=== PATIENT | female | born 1955 | race Caucasian/White ===

== ENCOUNTER → 2016-11-17 | Outpatient (CLI) | payer MEDICARE ==
[~2016-11-17] MED LIST: ALBU18HF INH; ALBU6.7H INH; AMLO5TAB4 PO; ARIP2TAB PO; ARIP5TAB6 PO; ASPI-496 PO; ASPI-621 PO; BISA5TAB38 PO; BISA5TAB5 PO; CLOB15CR TP; CLON-365 PO; CLON0.1T PO; CLON0.2T10 PO; CYCL-259 PO; DICY10CA3 PO; DULO30CA2 PO; FLUT9.9S NS; HYDR-3144 PO; HYDR25TA6 PO; LEVO150T5 PO; LEVO15TA6 PO; LEVO175T5 PO; LEVO500T33 PO; LEVO750T26 PO; LISD40CA PO; LISI40TA PO; LUBI24CA5 PO; METH20TA5 PO; METH20TA8 PO; METO-95 PO; METO-99 PO; MIRT30TA4 PO; MORP30TA3 PO; MORPHINE PO; MULT-706 PO; NAPR1TAB25 PO; NAPR220C2 PO; OMEP-110 PO; OXYC15TA PO; PANT40TA5 PO; POTA10TA5 PO; POTA20TA91 PO; PRED5TAB PO; ROPI1TAB2 PO; SIMV20TA3 PO; SUVO20TA PO; TIOT18CA INH; VANC1VIA3 PO; ZOLP10TA5 PO; medical marijuana PO
== END | disposition home or self-care (01) ==
LOC: RAD 15:28
PROVIDERS: ATTEND Internal Medicine Pulmonary Disease
DX: J43.9 Emphysema, unspecified (principal); R91.8 Other nonspecific abnormal finding of lung field
CPT/HCPCS: 71250

== ENCOUNTER → 2017-04-04 | Outpatient (CLI) | payer MEDICARE ==
[~2017-04-04] MED LIST changes: -ARIP2TAB PO; +ARIP2TAB2 PO; +ARIP5TAB13 PO; -ARIP5TAB6 PO; -HYDR-3144 PO; +HYDR-3245 PO; -LEVO500T33 PO; +LEVO500T47 PO; -LISD40CA PO; +LISD40CA3 PO; -LUBI24CA5 PO; +LUBI24CA7 PO
== END | disposition home or self-care (01) ==
LOC: CFH 10:07
PROVIDERS: ATTEND Internal Medicine
DX: J43.2 Centrilobular emphysema (principal); R91.8 Other nonspecific abnormal finding of lung field; J98.11 Atelectasis
CPT/HCPCS: 71250

== ENCOUNTER → 2017-06-14 | Outpatient (CLI) | payer MEDICARE | END | disposition home or self-care (01) | LOC: CFH 06:41 | PROVIDERS: ATTEND Internal Medicine Hematology & Oncology | DX: D69.6 Thrombocytopenia, unspecified (principal); Z90.49 Acquired absence of other specified parts of digestive tract | CPT/HCPCS: 76700 ==

== ENCOUNTER → 2018-01-03 | Outpatient (CLI) | payer MEDICARE | END | disposition home or self-care (01) | LOC: CFH 09:39 | PROVIDERS: ATTEND Internal Medicine | DX: I70.0 Atherosclerosis of aorta (principal); J43.2 Centrilobular emphysema; R91.8 Other nonspecific abnormal finding of lung field | CPT/HCPCS: 71250 ==

== ENCOUNTER 2018-01-04 12:01 | Inpatient (IN) | payer MEDICARE ==
[~2018-01-04] VITALS: Ht 165.1 cm; Wt 58.4 kg
[~2018-01-04 12:01] MED LIST changes: -CLON-365 PO; +CLON1TAB4 PO
[2018-01-04] MEDS ORDERED: SODIUM CHLORIDE 0.9% 1,000ML IVBOLUS ONE (13:00)
[2018-01-04] MEDS ORDERED: SODIUM CHLORIDE FLUSH 10ML SYR IVF ONE (13:00)
[2018-01-04 13:22] LABS: O2 FLOW 3 L/min
[2018-01-04 13:29] LABS: MEAN CORPUSCULAR HEMOGLOBIN 30.8 pg (27.0-34.8); MEAN CORPUSCULAR HGB CONC 32.2 g/dL (32.4-35.8); MEAN CORPUSCULAR VOLUME 95.7 fL (80-100); RED BLOOD COUNT 3.94 x10^6/uL (3.82-5.3); RED CELL DISTRIBUTION WIDTH 13.8 % (9.6-15.2)
[2018-01-04 13:32] LABS: INTERNATIONAL NORMALIZED RATIO 1.06 (0.93-1.1); PROTHROMBIN TIME 10.9 Seconds (9.6-11.5)
[2018-01-04 13:35] LABS: ALANINE AMINOTRANSFERASE 22 U/L (12-78); ALBUMIN 3.3 g/dL (3.4-5.0); ANION GAP 7 mmol/L (5-15); CALCIUM 8.8 mg/dL (8.5-10.1); CHLORIDE 116 mmol/L (98-107)
[2018-01-04 13:40] LABS: ALKALINE PHOSPHATASE 80 U/L (45-117); BILIRUBIN,TOTAL 0.2 mg/dL (0.2-1.0); FREE T4 (FREE THYROXINE) 1.94 ng/dL (0.76-1.46); TOTAL PROTEIN 6.4 g/dL (6.4-8.2); TROPONIN I < 0.015 ng/mL (0.000-0.045)
[2018-01-04] MEDS ORDERED: SODIUM BICARB 8.4%, 50ML SYRINGE IVPush ONE (13:42)
[2018-01-04 13:46] LABS: BASOPHILS # (AUTO) 0.08 x10^3/uL (0-0.1); BASOPHILS % (AUTO) 1 % (0-1); EOSINOPHILS # (AUTO) 0.07 x10^3/uL (0-0.4); EOSINOPHILS % (AUTO) 1 % (1-7); LYMPHOCYTES # (AUTO) 1.63 x10^3/uL (1-3.4); LYMPHOCYTES % (AUTO) 20 % (22-44); MD SCAN; MEAN PLATELET VOLUME 12.5 fL (7.4-10.4); MONOCYTES # (AUTO) 0.77 x10^3/uL (0.2-0.8); MONOCYTES % (AUTO) 9 % (2-9); NEUTROPHILS # (AUTO) 5.69 x10^3/uL (1.8-6.8); NEUTROPHILS % (AUTO) 69 % (42-75); PLATELET COUNT 91 x10^3/uL (130-400); THYROID STIMULATING HORMONE 0.057 mIU/L (0.358-3.740)
[2018-01-04] MEDS ORDERED: INSULIN REGULAR 100 UNITS/ML, 3ML VIAL IVPush ONE (14:00)
[2018-01-04] MEDS ORDERED: SODIUM POLYSTYRENE SULFONATE ORAL SUSP PO ONE (14:00)
[2018-01-04] MEDS ORDERED: DEXTROSE 50%, 50ML VIAL IVPush ONE (14:00)
[2018-01-04] MEDS ORDERED: CALCIUM CHLORIDE 13.6 MEQ in SODIUM CHLORIDE 0.9% 100 ML IV ONE (14:00)
[2018-01-04] MEDS ORDERED: SODIUM POLY SULFONATE UDC 15 GM/60 ML ONE (14:08)
[2018-01-04] MEDS ORDERED: SODIUM BICARB 8.4%, 50ML SYRINGE ONE (14:08)
[2018-01-04] MEDS ORDERED: CALCIUM CHLORIDE 10%, 10ML SYR ONE (14:08)
[2018-01-04] MEDS ORDERED: DEXTROSE 50%, 50ML SYRINGE ONE (14:08)
[2018-01-04] MEDS ORDERED: INSULIN REGULAR 100 UNITS/ML, 3ML VIAL ONE (14:09)
[2018-01-04] MEDS ORDERED: SODIUM BICARBONATE 8.4% 75 MEQ in SODIUM CHLORIDE 0.45% 1,000 ML IV SCH ×2 (14:30→16:00)
[2018-01-04] MEDS ORDERED: SODIUM CHLORIDE 0.9% 1,000ML IVBOLUS STA (15:08)
[2018-01-04] MEDS ORDERED: BISACODYL 10 MG SUPP PR PRN ×2 (16:00→17:00)
[2018-01-04] MEDS ORDERED: POLYETHYLENE GLYCOL 17 GM PACKET PO PRN (16:00)
[2018-01-04] MEDS ORDERED: DOCUSATE 100 MG CAPSULE PO PRN (16:00)
[2018-01-04] MEDS ORDERED: LACTULOSE 20 GM/30 ML UDC PO PRN (17:00)
[2018-01-04 17:33] VITALS: BP 87/54
[2018-01-04] MEDS: HEPARIN 5,000 UNITS/ML, 1ML SQ SCH (18:02)
[2018-01-04] MEDS: HYDROCORTISONE 100 MG INJ. IVPush SCH (18:02)
[2018-01-04] MEDS ORDERED: ALBUTEROL SULFATE 2.5 MG/3 ML NPPB PRN (18:30)
[2018-01-04] MEDS ORDERED: SODIUM CHLORIDE 0.9% 1,000 ML IV SCH ×2 (18:30→20:30)
[2018-01-04 19:22] LABS: ANION GAP 10 mmol/L (5-15); CALCIUM 8.6 mg/dL (8.5-10.1); CHLORIDE 123 mmol/L (98-107); CREATININE 1.57 mg/dL (0.55-1.02)
[2018-01-04] MEDS ORDERED: ONDANSETRON 2MG/ML, 2ML ONE (19:44)
[2018-01-04] MEDS: ONDANSETRON 2MG/ML, 2ML IVPush PRN (19:45)
[2018-01-04 20:44] LABS: MICROSCOPIC AUTO
[2018-01-04 20:47] LABS: CULTURE INDICATED? YES
[2018-01-04] MEDS ORDERED: FAMOTIDINE 20 MG/2 ML IVPush SCH (21:00)
[2018-01-04] MEDS: SENNA/DOCUSATE TABLET PO SCH (21:00)
[2018-01-04] MEDS: SODIUM BICARBONATE 8.4% 100 MEQ in DEXTROSE 5% 1,000 ML IV SCH (21:46)
[2018-01-05] MEDS: HYDROCORTISONE 100 MG INJ. IVPush SCH ×3 (01:26→15:51)
[2018-01-05] MEDS: HEPARIN 5,000 UNITS/ML, 1ML SQ SCH ×2 (01:26→08:00)
[2018-01-05] MEDS ORDERED: SODIUM CHLORIDE 0.9% 500 ML IV PRN (02:00)
[2018-01-05 04:00] VITALS: BP 100/53
[2018-01-05 04:43] LABS: ALBUMIN 2.6 g/dL (3.4-5.0); ANION GAP 5 mmol/L (5-15); CALCIUM 7.6 mg/dL (8.5-10.1); CHLORIDE 121 mmol/L (98-107)
[2018-01-05 04:46] LABS: ALANINE AMINOTRANSFERASE 27 U/L (12-78); ALKALINE PHOSPHATASE 68 U/L (45-117); BILIRUBIN,TOTAL 0.3 mg/dL (0.2-1.0); CREATININE 1.21 mg/dL (0.55-1.02); TOTAL PROTEIN 5.2 g/dL (6.4-8.2)
[2018-01-05 04:57] LABS: MEAN CORPUSCULAR HEMOGLOBIN 31.3 pg (27.0-34.8); MEAN CORPUSCULAR VOLUME 94.7 fL (80-100); MEAN PLATELET VOLUME 12.9 fL (7.4-10.4); PLATELET COUNT 76 x10^3/uL (130-400); RED BLOOD COUNT 3.29 x10^6/uL (3.82-5.3); RED CELL DISTRIBUTION WIDTH 13.8 % (9.6-15.2)
[2018-01-05 05:30] LABS: BASOPHILS # (AUTO) 0.03 x10^3/uL (0-0.1); BASOPHILS % (AUTO) 1 % (0-1); EOSINOPHILS % (AUTO) 0 % (1-7); LYMPHOCYTES # (AUTO) 0.63 x10^3/uL (1-3.4); LYMPHOCYTES % (AUTO) 13 % (22-44); MD SCAN; MONOCYTES % (AUTO) 2 % (2-9); NEUTROPHILS # (AUTO) 3.96 x10^3/uL (1.8-6.8); NEUTROPHILS % (AUTO) 84 % (42-75)
[2018-01-05] MEDS: SODIUM BICARBONATE 8.4% 100 MEQ in DEXTROSE 5% 1,000 ML IV SCH (06:18)
[2018-01-05] MEDS: DOCUSATE 100 MG CAPSULE PO SCH (08:04)
[2018-01-05] MEDS ORDERED: MAGNESIUM SULFATE PMX 2GM/50ML 50 ML IV ONE ×2 (09:00→11:00)
[2018-01-05 12:27] LABS: HIT RESULT POSITIVE (NEGATIVE)
[2018-01-05] MEDS ORDERED: MORP30CA15 PO (14:34)
[2018-01-05] MEDS ORDERED: MIRT30TA4 PO (14:34)
[2018-01-05] MEDS ORDERED: METH2.5T PO (14:34)
[2018-01-05] MEDS ORDERED: TRAZ-137 PO (14:34)
[2018-01-05] MEDS ORDERED: ARIP2TAB2 PO (14:34)
[2018-01-05] MEDS ORDERED: BUPR150T13 PO (14:34)
[2018-01-05] MEDS ORDERED: ROPI1TAB PO (14:34)
[2018-01-05] MEDS ORDERED: SPIR25TA5 PO (14:34)
[2018-01-05] MEDS ORDERED: METH20TA8 PO (14:34)
[2018-01-05 14:47] LABS: ANION GAP 8 mmol/L (5-15); CALCIUM 7.7 mg/dL (8.5-10.1); CHLORIDE 113 mmol/L (98-107); CREATININE 1.08 mg/dL (0.55-1.02)
[2018-01-05 15:50] LABS: MICROSCOPIC AUTO
[2018-01-05] MEDS: DEXTROSE 5% 1,000 ML IV SCH (15:51)
[2018-01-05 16:00] LABS: CULTURE INDICATED? YES
[2018-01-05 16:15] VITALS: BP 120/75
[2018-01-05] MEDS ORDERED: POTASSIUM CHLORIDE 20 MEQ TAB.ER.PRT PO ONE (17:00)
[2018-01-05] MEDS: CEFTRIAXONE PMX 2GM/50ML 50 ML IV SCH (18:00)
[2018-01-05 18:46] VITALS: BP 122/73
[2018-01-05] MEDS: ACETAMINOPHEN 325 MG TABLET PO PRN (20:07)
[2018-01-05] MEDS: FAMOTIDINE 20 MG/2 ML IVPush SCH (20:08)
[2018-01-05] MEDS: SENNA/DOCUSATE TABLET PO SCH (20:08)
[2018-01-05] MEDS: SIMVASTATIN 20 MG TABLET PO SCH (20:08)
[2018-01-06] VITALS (15 sets, daily range): BP systolic 120–157; BP diastolic 75–94
[2018-01-06] MEDS: HYDROCORTISONE 100 MG INJ. IVPush SCH ×3 (00:32→17:02)
[2018-01-06] MEDS: DEXTROSE 5% 1,000 ML IV SCH (00:32)
[2018-01-06] MEDS: ACETAMINOPHEN 325 MG TABLET PO PRN (00:33)
[2018-01-06 05:37] LABS: CHLORIDE 110 mmol/L (98-107)
[2018-01-06 05:47] LABS: ALANINE AMINOTRANSFERASE 29 U/L (12-78); ALBUMIN 2.7 g/dL (3.4-5.0); ALKALINE PHOSPHATASE 61 U/L (45-117); BILIRUBIN,TOTAL 0.4 mg/dL (0.2-1.0); CALCIUM 7.7 mg/dL (8.5-10.1); CREATININE 0.95 mg/dL (0.55-1.02); TOTAL PROTEIN 5.5 g/dL (6.4-8.2)
[2018-01-06 05:49] LABS: ANION GAP 9 mmol/L (5-15)
[2018-01-06] MEDS: ASPIRIN 81 MG TABLET EC PO SCH (06:10)
[2018-01-06 06:20] LABS: BASOPHILS # (AUTO) 0.03 x10^3/uL (0-0.1); BASOPHILS % (AUTO) 0 % (0-1); EOSINOPHILS % (AUTO) 0 % (1-7); LYMPHOCYTES # (AUTO) 1.03 x10^3/uL (1-3.4); LYMPHOCYTES % (AUTO) 10 % (22-44); MD SCAN; MEAN CORPUSCULAR HEMOGLOBIN 31.3 pg (27.0-34.8); MEAN CORPUSCULAR HGB CONC 33.2 g/dL (32.4-35.8); MEAN CORPUSCULAR VOLUME 94.3 fL (80-100); MEAN PLATELET VOLUME 12.8 fL (7.4-10.4); MONOCYTES # (AUTO) 0.58 x10^3/uL (0.2-0.8); MONOCYTES % (AUTO) 6 % (2-9); NEUTROPHILS % (AUTO) 84 % (42-75); PLATELET COUNT 80 x10^3/uL (130-400); RED BLOOD COUNT 3.26 x10^6/uL (3.82-5.3); RED CELL DISTRIBUTION WIDTH 13.8 % (9.6-15.2)
[2018-01-06] MEDS: LEVOTHYROXINE 150 MCG TABLET PO SCH (07:26)
[2018-01-06] MEDS ORDERED: POTASSIUM PHOSPHATE 44 MEQ in SODIUM CHLORIDE 0.9% 500 ML IV ONE (07:30)
[2018-01-06] MEDS ORDERED: POTASSIUM CHLORIDE 20 MEQ TAB.ER.PRT PO ONE (08:30)
[2018-01-06] MEDS: FAMOTIDINE 20 MG/2 ML IVPush SCH ×2 (09:06→23:18)
[2018-01-06] MEDS: ARIPIPRAZOLE 2 MG TABLET PO SCH (09:06)
[2018-01-06] MEDS: DOCUSATE 100 MG CAPSULE PO SCH (09:10)
[2018-01-06] MEDS: NITROGLYCERIN 0.4 MG BOTTLE (25 TABS) SL PRN ×2 (21:54→22:00)
[2018-01-06] MEDS ORDERED: METOPROLOL TARTRATE 25 MG TABLET PO ONE (23:00)
[2018-01-06] MEDS ORDERED: DIGOXIN 0.25 MG/ML, 2ML IVPush ONE (23:00)
[2018-01-06] MEDS: SIMVASTATIN 20 MG TABLET PO SCH (23:18)
[2018-01-06] MEDS: CEFTRIAXONE PMX 2GM/50ML 50 ML IV SCH (23:19)
[2018-01-06 23:24] LABS: THYROID STIMULATING HORMONE 0.019 mIU/L (0.358-3.740)
[2018-01-07 00:23] LABS: FREE T4 (FREE THYROXINE) 2.73 ng/dL (0.76-1.46)
[2018-01-07] MEDS: HYDROCORTISONE 100 MG INJ. IVPush SCH ×3 (00:57→16:56)
[2018-01-07 01:40] VITALS: BP 152/100
[2018-01-07 02:05] LABS: BASOPHILS # (AUTO) 0.04 x10^3/uL (0-0.1); BASOPHILS % (AUTO) 0 % (0-1); EOSINOPHILS # (AUTO) 0.04 x10^3/uL (0-0.4); EOSINOPHILS % (AUTO) 0 % (1-7); LYMPHOCYTES # (AUTO) 1.88 x10^3/uL (1-3.4); LYMPHOCYTES % (AUTO) 12 % (22-44); MD NO; MEAN CORPUSCULAR HEMOGLOBIN 30.5 pg (27.0-34.8); MEAN CORPUSCULAR HGB CONC 32.8 g/dL (32.4-35.8); MONOCYTES # (AUTO) 1.27 x10^3/uL (0.2-0.8); MONOCYTES % (AUTO) 8 % (2-9); NEUTROPHILS # (AUTO) 12.23 x10^3/uL (1.8-6.8); NEUTROPHILS % (AUTO) 79 % (42-75); PLATELET COUNT 112 x10^3/uL (130-400); RED BLOOD COUNT 3.45 x10^6/uL (3.82-5.3); RED CELL DISTRIBUTION WIDTH 13.5 % (9.6-15.2)
[2018-01-07 02:14] LABS: ANION GAP 8 mmol/L (5-15); CALCIUM 8.2 mg/dL (8.5-10.1); CHLORIDE 115 mmol/L (98-107); CREATININE 0.67 mg/dL (0.55-1.02)
[2018-01-07] MEDS: ASPIRIN 81 MG TABLET EC PO SCH (05:43)
[2018-01-07] MEDS: LEVOTHYROXINE 150 MCG TABLET PO SCH (05:43)
[2018-01-07 07:44] VITALS: BP 125/87
[2018-01-07] MEDS: FAMOTIDINE 20 MG/2 ML IVPush SCH ×2 (08:28→21:02)
[2018-01-07] MEDS: DOCUSATE 100 MG CAPSULE PO SCH (08:33)
[2018-01-07] MEDS: ARIPIPRAZOLE 2 MG TABLET PO SCH (09:41)
[2018-01-07 09:44] VITALS: BP 153/102
[2018-01-07 10:35] VITALS: BP 134/89
[2018-01-07] MEDS ORDERED: HALOBETASOL (11:34)
[2018-01-07] MEDS ORDERED: NALO4SPR NAS (11:34)
[2018-01-07] MEDS ORDERED: LEVO40CA PO (11:34)
[2018-01-07] MEDS ORDERED: HYDR-3237 PO (11:34)
[2018-01-07] MEDS ORDERED: BIVALIRUDIN 250 MG ONE ×2 (13:00→14:05)
[2018-01-07] MEDS ORDERED: FENTANYL PF 100 MCG/2ML ONE (13:00)
[2018-01-07] MEDS ORDERED: MIDAZOLAM 1 MG/ML, 5ML ONE (13:00)
[2018-01-07] MEDS ORDERED: VERAPAMIL 2.5 MG/ML, 2ML ONE (13:01)
[2018-01-07] MEDS ORDERED: LIDOCAINE-MPF 2%, 2ML ONE (13:01)
[2018-01-07] MEDS ORDERED: BIVALIRUDIN 250 MG in DEXTROSE 5% 50 ML IV SCH (13:59)
[2018-01-07] MEDS ORDERED: FUROSEMIDE 40 MG/4 ML ONE ×2 (14:00→14:36)
[2018-01-07] MEDS ORDERED: TICAGRELOR 90 MG TABLET ONE (14:04)
[2018-01-07 14:19] VITALS: BP 172/84
[2018-01-07] MEDS ORDERED: FUROSEMIDE 20 MG/2 ML ONE (14:36)
[2018-01-07] MEDS ORDERED: FUROSEMIDE 40 MG/4 ML IV ONE ×2 (14:40→16:30)
[2018-01-07] MEDS ORDERED: MORPHINE SULFATE 4 MG/ML, 1ML ONE (14:52)
[2018-01-07] MEDS ORDERED: morphine SULFATE 10 MG/ML, 1ML IVPush ONE (15:00)
[2018-01-07] MEDS: ALBUTEROL SULFATE 2.5 MG/3 ML NPPB SCH ×4 (15:00→22:02)
[2018-01-07 15:11] LABS: O2 FLOW 14 L/min
[2018-01-07] MEDS: POTASSIUM CHLORIDE 20 MEQ TAB.ER.PRT PO SCH (16:56)
[2018-01-07 18:01] LABS: ANION GAP 11 mmol/L (5-15); CALCIUM 8.4 mg/dL (8.5-10.1); CHLORIDE 113 mmol/L (98-107); CREATININE 0.81 mg/dL (0.55-1.02)
[2018-01-07] MEDS: CEFTRIAXONE PMX 2GM/50ML 50 ML IV SCH (18:23)
[2018-01-07] MEDS: ONDANSETRON 2MG/ML, 2ML IVPush PRN (19:13)
[2018-01-07] MEDS: SIMVASTATIN 20 MG TABLET PO SCH (21:01)
[2018-01-07] MEDS: TICAGRELOR 90 MG TABLET PO SCH (21:01)
[2018-01-08] MEDS: ALBUTEROL SULFATE 2.5 MG/3 ML NPPB SCH ×2 (01:38→07:44)
[2018-01-08 05:44] LABS: MEAN CORPUSCULAR HEMOGLOBIN 31.6 pg (27.0-34.8); MEAN CORPUSCULAR HGB CONC 33.8 g/dL (32.4-35.8); MEAN CORPUSCULAR VOLUME 93.3 fL (80-100); MEAN PLATELET VOLUME 11.6 fL (7.4-10.4); PLATELET COUNT 100 x10^3/uL (130-400); RED BLOOD COUNT 3.31 x10^6/uL (3.82-5.3); RED CELL DISTRIBUTION WIDTH 13.6 % (9.6-15.2)
[2018-01-08 05:55] LABS: CHLORIDE 105 mmol/L (98-107)
[2018-01-08 05:59] LABS: ALBUMIN 2.8 g/dL (3.4-5.0); ANION GAP 7 mmol/L (5-15); CALCIUM 8.3 mg/dL (8.5-10.1); CREATININE 0.69 mg/dL (0.55-1.02)
[2018-01-08 06:12] LABS: BASOPHILS % (AUTO) 0 % (0-1); EOSINOPHILS # (AUTO) 0.08 x10^3/uL (0-0.4); EOSINOPHILS % (AUTO) 1 % (1-7); LYMPHOCYTES # (AUTO) 1.76 x10^3/uL (1-3.4); LYMPHOCYTES % (AUTO) 10 % (22-44); MD SCAN; MONOCYTES % (AUTO) 8 % (2-9); NEUTROPHILS # (AUTO) 14.22 x10^3/uL (1.8-6.8); NEUTROPHILS % (AUTO) 82 % (42-75)
[2018-01-08] MEDS: LEVOTHYROXINE 100 MCG TABLET PO SCH (06:13)
[2018-01-08] MEDS ORDERED: MAGNESIUM SULFATE IN WATER 50 ML IVPB ONE (07:30)
[2018-01-08] MEDS ORDERED: POTASSIUM CHLORIDE 20 MEQ TAB.ER.PRT PO ONE ×2 (07:30→11:30)
[2018-01-08] MEDS ORDERED: POTASSIUM PHOSPHATE 44 MEQ in SODIUM CHLORIDE 0.9% 500 ML IV ONE (07:30)
[2018-01-08] MEDS: FUROSEMIDE 40 MG/4 ML IV SCH ×2 (07:33→17:38)
[2018-01-08] MEDS: POTASSIUM CHLORIDE 20 MEQ TAB.ER.PRT PO SCH ×2 (08:00→17:38)
[2018-01-08] MEDS ORDERED: FUROSEMIDE 40 MG/4 ML IV SCH (09:00)
[2018-01-08] MEDS: DOCUSATE 100 MG CAPSULE PO SCH (09:00)
[2018-01-08] MEDS: ARIPIPRAZOLE 2 MG TABLET PO SCH (09:01)
[2018-01-08] MEDS: TICAGRELOR 90 MG TABLET PO SCH ×2 (09:02→21:07)
[2018-01-08] MEDS: ASPIRIN 81 MG TABLET EC PO SCH (09:02)
[2018-01-08] MEDS: FAMOTIDINE 20 MG/2 ML IVPush SCH (09:04)
[2018-01-08] MEDS: METOPROLOL SUCCINATE 25 MG TAB.ER.24H PO SCH (10:48)
[2018-01-08] MEDS ORDERED: ALBUTEROL SULFATE 2.5 MG/3 ML NPPB SCH (11:00)
[2018-01-08 14:38] VITALS: BP 110/75
[2018-01-08] MEDS ORDERED: ALBUTEROL/IPRATROPIUM 2.5MG/0.5MG, 3 ML ONE (15:27)
[2018-01-08] MEDS: ALBUTEROL/IPRATROPIUM 2.5MG/0.5MG, 3 ML NPPB SCH ×4 (16:20→23:29)
[2018-01-08 19:01] VITALS: BP 112/75
[2018-01-08] MEDS: CEFTRIAXONE PMX 2GM/50ML 50 ML IV SCH (19:21)
[2018-01-08] MEDS ORDERED: MIRTAZAPINE 30 MG TAB.RAPDIS PO SCH (21:00)
[2018-01-08] MEDS ORDERED: ROPINIROLE 1MG TABLET PO SCH (21:00)
[2018-01-08 21:03] VITALS: BP 107/70
[2018-01-08] MEDS: SIMVASTATIN 20 MG TABLET PO SCH (21:07)
[2018-01-08] MEDS: FAMOTIDINE 20 MG TABLET PO SCH (21:07)
[2018-01-09 00:28] VITALS: BP 111/76
[2018-01-09 05:09] LABS: ALBUMIN 2.9 g/dL (3.4-5.0); ANION GAP 8 mmol/L (5-15); BASOPHILS # (AUTO) 0.09 x10^3/uL (0-0.1); BASOPHILS % (AUTO) 1 % (0-1); CALCIUM 8.4 mg/dL (8.5-10.1); CHLORIDE 105 mmol/L (98-107); EOSINOPHILS # (AUTO) 0.21 x10^3/uL (0-0.4); EOSINOPHILS % (AUTO) 2 % (1-7); LYMPHOCYTES % (AUTO) 15 % (22-44); MD NO; MEAN CORPUSCULAR HEMOGLOBIN 30.9 pg (27.0-34.8); MEAN CORPUSCULAR HGB CONC 32.8 g/dL (32.4-35.8); MEAN CORPUSCULAR VOLUME 94.1 fL (80-100); MEAN PLATELET VOLUME 11.8 fL (7.4-10.4); MONOCYTES # (AUTO) 1.05 x10^3/uL (0.2-0.8); MONOCYTES % (AUTO) 8 % (2-9); NEUTROPHILS # (AUTO) 10.38 x10^3/uL (1.8-6.8); NEUTROPHILS % (AUTO) 76 % (42-75); PLATELET COUNT 105 x10^3/uL (130-400); RED BLOOD COUNT 3.49 x10^6/uL (3.82-5.3); RED CELL DISTRIBUTION WIDTH 13.4 % (9.6-15.2)
[2018-01-09 05:16] LABS: % IRON SATURATION 19 % (20-55); ALANINE AMINOTRANSFERASE 24 U/L (12-78); ALKALINE PHOSPHATASE 60 U/L (45-117); BILIRUBIN,TOTAL 0.8 mg/dL (0.2-1.0); CREATININE 0.79 mg/dL (0.55-1.02); IRON LEVEL 46 mcg/dL (50-170); TOTAL IRON BINDING CAPACITY 237 mcg/dL (250-450); TOTAL PROTEIN 6.3 g/dL (6.4-8.2)
[2018-01-09 05:49] VITALS: BP 122/76
[2018-01-09] MEDS: LEVOTHYROXINE 100 MCG TABLET PO SCH (05:52)
[2018-01-09] MEDS: METOPROLOL SUCCINATE 25 MG TAB.ER.24H PO SCH (05:52)
[2018-01-09] MEDS ORDERED: POTASSIUM PHOSPHATE 44 MEQ in SODIUM CHLORIDE 0.9% 500 ML IV ONE (07:00)
[2018-01-09] MEDS: POTASSIUM CHLORIDE 20 MEQ TAB.ER.PRT PO SCH (08:27)
[2018-01-09] MEDS: TICAGRELOR 90 MG TABLET PO SCH (08:27)
[2018-01-09] MEDS: FUROSEMIDE 40 MG/4 ML IV SCH (08:27)
[2018-01-09] MEDS: DOCUSATE 100 MG CAPSULE PO SCH (08:28)
[2018-01-09] MEDS: ASPIRIN 81 MG TABLET EC PO SCH (08:28)
[2018-01-09] MEDS: FAMOTIDINE 20 MG TABLET PO SCH (08:28)
[2018-01-09 09:03] VITALS: BP 159/95
[2018-01-09] MEDS ORDERED: FUROSEMIDE 20 MG TABLET PO SCH (10:00)
[2018-01-09] MEDS ORDERED: LISINOPRIL 20 MG TABLET PO SCH (10:00)
[2018-01-09] MEDS: ALBUTEROL/IPRATROPIUM 2.5MG/0.5MG, 3 ML NPPB SCH ×2 (10:00→14:00)
[2018-01-09] MEDS: ARIPIPRAZOLE 2 MG TABLET PO SCH (10:51)
[2018-01-09 13:40] VITALS: BP 125/83
[2018-01-09] MEDS ORDERED: TICA90TA PO (14:55)
[2018-01-09] MEDS ORDERED: FURO-93 PO (14:55)
[2018-01-09] MEDS ORDERED: METO-95 PO (14:55)
[2018-01-09] MEDS ORDERED: LISI40TA PO (14:55)
[2018-01-09] MEDS ORDERED: LEVO150T5 PO (14:55)
[2018-01-09] MEDS ORDERED: ALBUTEROL SULFATE 2.5 MG/3 ML NPPB SCH (15:00)
[2018-01-09] MEDS: CEFTRIAXONE PMX 2GM/50ML 50 ML IV SCH (15:21)
== END 2018-01-09 17:13 | disposition home or self-care (01) | DRG 981 ==
LOC: ED 13:52 → EDIP 14:19 → CCU 16:24 → 3NE 01-05 16:03 → 5SO 01-06 22:32 → CCU 01-07 14:53 → 5SO 01-08 14:25 → DCLOUNGE 01-09 16:57
PROVIDERS: ADMIT Hospitalist; ATTEND Hospitalist
PROC: 027034Z Dilation of Coronary Artery, One Artery with Drug-eluting Intraluminal Device, Percutaneous Approach (ICD-10-PCS; principal; 2018-01-07)
PROC: 4A023N7 Measurement of Cardiac Sampling and Pressure, Left Heart, Percutaneous Approach (ICD-10-PCS; 2018-01-07)
PROC: B2111ZZ Fluoroscopy of Multiple Coronary Arteries using Low Osmolar Contrast (ICD-10-PCS; 2018-01-07)
PROC: B2151ZZ Fluoroscopy of Left Heart using Low Osmolar Contrast (ICD-10-PCS; 2018-01-07)
PROC: 4A033BC Measurement of Arterial Pressure, Coronary, Percutaneous Approach (ICD-10-PCS; 2018-01-07)
DX: N17.9 Acute kidney failure, unspecified (principal); I21.4 Non-ST elevation (NSTEMI) myocardial infarction; G93.40 Encephalopathy, unspecified; E03.5 Myxedema coma; J81.0 Acute pulmonary edema; J96.20 Acute and chronic respiratory failure, unspecified whether with hypoxia or hypercapnia; E87.0 Hyperosmolality and hypernatremia; E87.2 Acidosis; E87.4 Mixed disorder of acid-base balance; I48.92 Unspecified atrial flutter; J90 Pleural effusion, not elsewhere classified; J98.11 Atelectasis; N39.0 Urinary tract infection, site not specified; I25.10 Atherosclerotic heart disease of native coronary artery without angina pectoris; E03.4 Atrophy of thyroid (acquired); E78.5 Hyperlipidemia, unspecified; E86.1 Hypovolemia; E87.5 Hyperkalemia; E87.6 Hypokalemia; F31.9 Bipolar disorder, unspecified; G89.29 Other chronic pain; I10 Essential (primary) hypertension; I27.20 Pulmonary hypertension, unspecified; I48.91 Unspecified atrial fibrillation; I95.0 Idiopathic hypotension; J44.9 Chronic obstructive pulmonary disease, unspecified; J84.10 Pulmonary fibrosis, unspecified; K59.00 Constipation, unspecified; I08.0 Rheumatic disorders of both mitral and aortic valves; B96.1 Klebsiella pneumoniae [K. pneumoniae] as the cause of diseases classified elsewhere; K86.89 Other specified diseases of pancreas; N28.1 Cyst of kidney, acquired; Z90.710 Acquired absence of both cervix and uterus; Z99.81 Dependence on supplemental oxygen; Z85.43 Personal history of malignant neoplasm of ovary; Z68.21 Body mass index [BMI] 21.0-21.9, adult; Z87.891 Personal history of nicotine dependence
CPT/HCPCS: 36415; 36600; 70450; 71045; 74176; 76770; 80048; 80053; 80069; 81001; 82533; 82728; 82803; 82962; 83540; 83550; 83605; 83690; 83735; 83880; 84100; 84132; 84439; 84443; 84481; 84484; 84550; 85025; 85610; 85730; 86022; 87040; 87077; 87081; 87086; 87186; 93005; 93306; 93458; 93571; 94640; 96361; 96365; 96366; 96375; 99156; 99157; C1769; C1894; C9600; J0583; J0696; J1644; J1940; J2250; J2405; J3010; J3490; J7070; J7613; J7620; C1725; C1874; C1887; J1160; J1720; J2270; J3475; J7030; J7040; Q9967; S0028

== ENCOUNTER → 2018-02-13 | Outpatient (CLI) | payer MEDICARE ==
[~2018-02-13] MED LIST changes: +BUPR150T13 PO; +FURO-93 PO; +HALOBETASOL; +HYDR-3237 PO; +LEVO40CA PO; +METH2.5T PO; +MORP30CA15 PO; +NALO4SPR NAS; +ROPI1TAB PO; +SPIR25TA5 PO; +TICA90TA PO; +TRAZ-137 PO
== END | disposition home or self-care (01) ==
LOC: CFH 15:46
PROVIDERS: ATTEND Internal Medicine
DX: J43.9 Emphysema, unspecified (principal); R91.8 Other nonspecific abnormal finding of lung field
CPT/HCPCS: 71250

== ENCOUNTER 2018-03-01 05:50 | Day surgery (SDC) | payer MEDICARE ==
[~2018-03-01] VITALS: Ht 165.1 cm; Wt 54.0 kg
[~2018-03-01 05:50] MED LIST changes: +ALBU8.5H8 INH; +BUPR75TA6 PO; +FURO-92 PO; +IBUP1TAB11 PO; +LINA145C PO; +METO25TA91 PO; +OXYC10TA6 PO; +POTA10TA31 PO; +PSYL0.528 PO
[2018-03-01] MEDS ORDERED: SODIUM CHLORIDE 0.9% 1,000 ML IV SCH (06:51)
[2018-03-01 06:57] VITALS: BP 99/60
[2018-03-01 07:37] LABS: ALANINE AMINOTRANSFERASE 26 U/L (12-78); ALBUMIN 3.4 g/dL (3.4-5.0); ANION GAP 5 mmol/L (5-15); CHLORIDE 105 mmol/L (98-107); CREATININE 1.12 mg/dL (0.55-1.02)
[2018-03-01 07:39] LABS: ALKALINE PHOSPHATASE 97 U/L (45-117); BILIRUBIN,TOTAL 0.2 mg/dL (0.2-1.0)
[2018-03-01] MEDS ORDERED: ONDANSETRON ODT 8 MG PO ONE (08:00)
[2018-03-01] MEDS ORDERED: MIDAZOLAM 1 MG/ML, 2ML ONE (08:08)
[2018-03-01] MEDS ORDERED: ROCURONIUM 10 MG/ML,10ML ONE (08:08)
[2018-03-01] MEDS ORDERED: DEXAMETHASONE 4 MG/ML, 1ML ONE (08:08)
[2018-03-01] MEDS ORDERED: SUCCINYLCHOLINE 20 MG/ML, 10ML ONE (08:08)
[2018-03-01] MEDS ORDERED: FENTANYL PF 100 MCG/2ML ONE (08:08)
[2018-03-01] MEDS ORDERED: PROPOFOL 10 MG/ML, 20ML ONE ×2 (08:08)
[2018-03-01] MEDS ORDERED: ONDANSETRON ODT 8 MG ONE (08:08)
[2018-03-01] MEDS ORDERED: ACETAMINOPHEN 325 MG TABLET PO PRN (09:00)
[2018-03-01] MEDS ORDERED: ONDANSETRON 2MG/ML, 2ML IV PRN (09:00)
[2018-03-01] MEDS ORDERED: HYDROmorphone 1 MG/ML, 1ML IV PRN (09:00)
[2018-03-01] MEDS ORDERED: FENTANYL PF 100 MCG/2ML IV PRN (09:00)
[2018-03-01] MEDS ORDERED: hydrALAzine 20 MG/ML, 1ML IV PRN (09:00)
[2018-03-01] MEDS ORDERED: PROMETHAZINE 25 MG/ML, 1ML IV PRN (09:00)
[2018-03-01] MEDS ORDERED: OXYcodone 5 MG/5 ML ORAL.SOL UDC PO PRN (09:00)
[2018-03-01] MEDS ORDERED: LABETALOL 5MG/ML, 20ML IV PRN (09:00)
== END 2018-03-01 12:30 | disposition home or self-care (01) ==
LOC: OUT 05:50
PROVIDERS: ATTEND Internal Medicine
DX: J98.4 Other disorders of lung (principal); J44.9 Chronic obstructive pulmonary disease, unspecified; G47.33 Obstructive sleep apnea (adult) (pediatric); K21.9 Gastro-esophageal reflux disease without esophagitis; E03.9 Hypothyroidism, unspecified; I95.9 Hypotension, unspecified; E78.5 Hyperlipidemia, unspecified; F32.9 Major depressive disorder, single episode, unspecified; F41.9 Anxiety disorder, unspecified; I25.2 Old myocardial infarction; E87.6 Hypokalemia; Z90.49 Acquired absence of other specified parts of digestive tract; Z98.890 Other specified postprocedural states; Z88.1 Allergy status to other antibiotic agents; Z88.8 Allergy status to other drugs, medicaments and biological substances; Z79.82 Long term (current) use of aspirin; Z79.899 Other long term (current) drug therapy; Z98.61 Coronary angioplasty status
CPT/HCPCS: 31624; 31627; 31628; 36415; 71045; 76001; 80053; 87015; 87070; 87102; 87116; 87205; 87206; 88172; 88173; 88177; 88305; J0330; J1100; J2250; J2704; J3010; J7030; Q0162

== ENCOUNTER 2018-06-29 07:20 | Inpatient (IN) | payer MEDICARE ==
[~2018-06-29] VITALS: Ht 165.1 cm; Wt 57.5 kg
[~2018-06-29 07:20] MED LIST changes: -ASPI-621 PO; +ASPI81TA45 PO; -CLON0.1T PO; +CLON0.1T22 PO; +CLON1TAB11 PO; -CLON1TAB4 PO
[2018-06-29] MEDS ORDERED: ALBUTEROL/IPRATROPIUM 2.5MG/0.5MG, 3 ML ONE (07:55)
[2018-06-29] MEDS ORDERED: methylPREDNISolone SOD SUCC 125 MG/2 ML ONE (07:57)
[2018-06-29] MEDS ORDERED: SODIUM CHLORIDE FLUSH 10ML SYR IVF ONE (08:00)
[2018-06-29] MEDS ORDERED: methylPREDNISolone SOD SUCC 125 MG/2 ML IVP ONE (08:00)
[2018-06-29] MEDS ORDERED: ALBUTEROL/IPRATROPIUM 2.5MG/0.5MG, 3 ML NPPB PRN ×2 (08:00→12:30)
[2018-06-29 08:17] LABS: ALANINE AMINOTRANSFERASE 41 U/L (12-78); ALBUMIN 3.2 g/dL (3.4-5.0); ANION GAP 12 mmol/L (5-15); CALCIUM 9.8 mg/dL (8.5-10.1); CHLORIDE 99 mmol/L (98-107); CREATININE 1.14 mg/dL (0.55-1.02)
[2018-06-29 08:21] LABS: ALKALINE PHOSPHATASE 105 U/L (45-117); BILIRUBIN,TOTAL 0.8 mg/dL (0.2-1.0); TOTAL PROTEIN 8.4 g/dL (6.4-8.2)
[2018-06-29] MEDS ORDERED: LIOT5TAB3 PO (08:28)
[2018-06-29] MEDS ORDERED: OMEP-110 PO (08:28)
[2018-06-29 08:29] LABS: TROPONIN I 0.125 ng/mL (0.000-0.045)
[2018-06-29] MEDS ORDERED: ASPIRIN 81 MG TABLET CHEW ONE (08:33)
[2018-06-29] MEDS ORDERED: CEFTRIAXONE PMX 1GM/50ML 50 ML ONE (08:43)
[2018-06-29 08:48] LABS: MD YES; MEAN CORPUSCULAR HEMOGLOBIN 28.5 pg (27.0-34.8); MEAN CORPUSCULAR HGB CONC 32.5 g/dL (32.4-35.8); MEAN CORPUSCULAR VOLUME 87.7 fL (80-100); MEAN PLATELET VOLUME 13.3 fL (7.4-10.4); PLATELET COUNT 129 x10^3/uL (130-400); RED BLOOD COUNT 5.49 x10^6/uL (3.82-5.3); RED CELL DISTRIBUTION WIDTH 14.5 % (9.6-15.2)
[2018-06-29 08:51] LABS: BAND#(MANUAL) 5.37 x10^3/uL; BANDS%(MANUAL) 41 % (0-7); LYMPH#(MANUAL) 1.18 x10^3/uL (1-3.4); LYMPHS% (MANUAL) 9 % (22-44); METAMYELOCYTES# (MANUAL) 1.18 x10^3/uL (0-0); METAMYELOCYTES% (MANUAL) 9 % (0-1); MONOS#(MANUAL) 1.83 x10^3/uL (0.3-2.7); MONOS% (MANUAL) 14 % (2-9); SEG#(MANUAL) 3.54 x10^3/uL (1.8-6.8); SEGS% (MANUAL) 27 % (42-75)
[2018-06-29 08:52] LABS: <PLATELET ESTIMATE> DECREASED; ANISOCYTOSIS 1+; GIANT PLATELETS 1+
[2018-06-29] MEDS ORDERED: CEFTRIAXONE PMX 1GM/50ML 50 ML IVPB ONE (09:00)
[2018-06-29] MEDS ORDERED: SODIUM CHLORIDE 0.9% 1,000ML IVBOLUS ONE (09:00)
[2018-06-29] MEDS ORDERED: CEFTRIAXONE 1,000 MG in SODIUM CHLORIDE 0.9% 50 ML IVPB ONE (09:00)
[2018-06-29] MEDS ORDERED: SODIUM CHLORIDE FLUSH 10ML SYR IVF PRN (09:00)
[2018-06-29] MEDS ORDERED: AZITHROMYCIN 500 MG in SODIUM CHLORIDE 0.9% 250 ML IVPB ONE (09:00)
[2018-06-29] MEDS ORDERED: ASPIRIN 81 MG TABLET CHEW PO ONE (09:00)
[2018-06-29] MEDS ORDERED: DOCUSATE 100 MG CAPSULE PO PRN (10:30)
[2018-06-29] MEDS ORDERED: BISACODYL 10 MG SUPP PR PRN (10:30)
[2018-06-29] MEDS ORDERED: POTASSIUM CHLORIDE 20 MEQ TAB.ER.PRT PO ONE (10:30)
[2018-06-29] MEDS ORDERED: ALBUTEROL SULFATE 2.5 MG/3 ML NPPB PRN (10:30)
[2018-06-29] MEDS ORDERED: ONDANSETRON ODT 4 MG PO PRN (10:30)
[2018-06-29] MEDS ORDERED: ENALAPRILAT 1.25 MG/ML, 2ML IVPush PRN (10:30)
[2018-06-29] MEDS ORDERED: ONDANSETRON 2MG/ML, 2ML IVPush PRN (10:30)
[2018-06-29] MEDS ORDERED: hydrALAzine 20 MG/ML, 1ML IVPush PRN (10:30)
[2018-06-29 11:30] VITALS: BP 119/79
[2018-06-29 13:14] LABS: RAPID INFLUENZA A Negative (Negative); RAPID INFLUENZA B Negative (Negative)
[2018-06-29] MEDS ORDERED: MAGNESIUM SULFATE PMX 2GM/50ML 50 ML IV ONE (13:30)
[2018-06-29] MEDS: ALBUTEROL/IPRATROPIUM 2.5MG/0.5MG, 3 ML NPPB SCH ×3 (14:00→22:19)
[2018-06-29 14:46] LABS: TROPONIN I 0.135 ng/mL (0.000-0.045)
[2018-06-29] MEDS: CYCLOBENZAPRINE 10 MG TABLET PO SCH ×2 (15:43→20:40)
[2018-06-29 15:54] VITALS: BP 97/64
[2018-06-29 18:25] VITALS: BP 116/75
[2018-06-29] MEDS: FLUTICASONE NASAL SPRAY 16GM NAS SCH (20:37)
[2018-06-29] MEDS: LEVOMILNACIPRAN HYDROCHLORIDE 40 MG PO SCH (20:37)
[2018-06-29] MEDS: ROPINIROLE 1MG TABLET PO SCH (20:38)
[2018-06-29] MEDS: ATORVASTATIN 40 MG TABLET PO SCH (20:38)
[2018-06-29] MEDS: TRAZODONE 100MG TABLET PO SCH (20:38)
[2018-06-29] MEDS: BUPROPION SR 150 MG TABLET PO SCH (20:38)
[2018-06-29] MEDS: TICAGRELOR 90 MG TABLET PO SCH (20:39)
[2018-06-29] MEDS: BISACODYL 5 MG EC TABLET PO SCH (20:39)
[2018-06-29] MEDS: MIRTAZAPINE 15 MG TABLET PO SCH (20:39)
[2018-06-29] MEDS: CLOBETASOL PROPIONATE CRM 0.05%, 15GM TP SCH (20:40)
[2018-06-29] MEDS: PSYLLIUM PACKET PO SCH (20:40)
[2018-06-29] MEDS: OXYcodone IR 5MG TABLET PO PRN (20:43)
[2018-06-29 20:49] LABS: TROPONIN I 0.077 ng/mL (0.000-0.045)
[2018-06-29] MEDS ORDERED: SIMVASTATIN 20 MG TABLET PO SCH (21:00)
[2018-06-29] MEDS ORDERED: POTASSIUM CHLORIDE 20 MEQ TAB.ER.PRT PO SCH (21:00)
[2018-06-30 01:28] VITALS: BP 105/68
[2018-06-30] MEDS: OXYcodone IR 5MG TABLET PO PRN ×3 (04:34→19:50)
[2018-06-30 05:27] LABS: ANION GAP 8 mmol/L (5-15); CHLORIDE 104 mmol/L (98-107)
[2018-06-30 05:40] LABS: CHOL/HDL RATIO 3.1; CHOLESTEROL, TOTAL 110 mg/dL (140-239); CREATININE 1.02 mg/dL (0.55-1.02); HDL CHOL % 33 % (28-40); HDL CHOLESTEROL (DIRECT) 36 mg/dL (40-60); LDL CHOLESTEROL,CALCULATED 59 mg/dL (54-169); LDL/HDL RATIO 1.6 (0.5-3.0); TRIGLYCERIDES 75 mg/dL (50-200); VLDL CHOLESTEROL 15 mg/dL (0-25)
[2018-06-30 05:41] LABS: THYROID STIMULATING HORMONE < 0.005 mIU/L (0.358-3.740)
[2018-06-30 05:53] LABS: MD YES; MEAN CORPUSCULAR HEMOGLOBIN 29.4 pg (27.0-34.8); MEAN CORPUSCULAR HGB CONC 33.2 g/dL (32.4-35.8); MEAN CORPUSCULAR VOLUME 88.5 fL (80-100); MEAN PLATELET VOLUME 13.1 fL (7.4-10.4); PLATELET COUNT 109 x10^3/uL (130-400); RED BLOOD COUNT 4.67 x10^6/uL (3.82-5.3); RED CELL DISTRIBUTION WIDTH 14.6 % (9.6-15.2)
[2018-06-30 05:55] LABS: BAND#(MANUAL) 3.64 x10^3/uL; BANDS%(MANUAL) 36 % (0-7); LYMPH#(MANUAL) 1.01 x10^3/uL (1-3.4); LYMPHS% (MANUAL) 10 % (22-44); METAMYELOCYTES% (MANUAL) 2 % (0-1); MONOS#(MANUAL) 0.51 x10^3/uL (0.3-2.7); MONOS% (MANUAL) 5 % (2-9); SEG#(MANUAL) 4.75 x10^3/uL (1.8-6.8); SEGS% (MANUAL) 47 % (42-75)
[2018-06-30 05:56] LABS: <PLATELET ESTIMATE> DECREASED; ANISOCYTOSIS 1+
[2018-06-30 05:58] LABS: GIANT PLATELETS 1+; LARGE PLATELETS 1+
[2018-06-30] MEDS: ALBUTEROL/IPRATROPIUM 2.5MG/0.5MG, 3 ML NPPB SCH ×4 (06:46→19:02)
[2018-06-30] MEDS ORDERED: MAGNESIUM SULFATE PMX 2GM/50ML 50 ML IV ONE (07:00)
[2018-06-30 07:05] VITALS: BP 111/66
[2018-06-30] MEDS: BISACODYL 5 MG EC TABLET PO SCH ×2 (08:17→19:47)
[2018-06-30] MEDS: PSYLLIUM PACKET PO SCH ×2 (08:18→19:47)
[2018-06-30] MEDS: SENNA/DOCUSATE TABLET PO SCH (08:18)
[2018-06-30] MEDS: FLUTICASONE NASAL SPRAY 16GM NAS SCH ×2 (09:00→19:46)
[2018-06-30] MEDS: TEMPLATE NON-FORMULARY MED. (Linaclotide** (Linzess**) 145 MCG) PO SCH (09:00)
[2018-06-30] MEDS: CLOBETASOL PROPIONATE CRM 0.05%, 15GM TP SCH ×2 (09:00→19:47)
[2018-06-30] MEDS ORDERED: LEVOTHYROXINE 150 MCG TABLET PO SCH (09:00)
[2018-06-30] MEDS ORDERED: ALBUTEROL SULFATE 2.5 MG/3 ML NPPB SCH (09:00)
[2018-06-30] MEDS: LISDEXAMFETAMINE DIMESYLATE 40 MG PO SCH (09:00)
[2018-06-30 09:20] LABS: FREE T4 (FREE THYROXINE) 2.29 ng/dL (0.76-1.46)
[2018-06-30] MEDS: CEFTRIAXONE PMX 1GM/50ML 50 ML IV SCH (11:12)
[2018-06-30] MEDS: AZITHROMYCIN 500 MG in SODIUM CHLORIDE 0.9% 250 ML IV SCH (11:29)
[2018-06-30] MEDS: ASPIRIN 81 MG TABLET CHEW PO SCH (11:32)
[2018-06-30] MEDS: TICAGRELOR 90 MG TABLET PO SCH ×2 (11:32→21:02)
[2018-06-30] MEDS: LUBIPROSTONE 24 MCG CAPSULE PO SCH (11:32)
[2018-06-30] MEDS: BUPROPION SR 150 MG TABLET PO SCH ×2 (11:33→21:02)
[2018-06-30] MEDS: OMEPRAZOLE 20 MG CAPSULE.DR PO SCH (11:33)
[2018-06-30] MEDS: METHYLPHENIDATE 10 MG TABLET PO SCH (11:34)
[2018-06-30] MEDS: ARIPIPRAZOLE 5 MG TABLET PO SCH (11:34)
[2018-06-30] MEDS: POTASSIUM CHLORIDE 20 MEQ TAB.ER.PRT PO SCH ×2 (11:34→16:39)
[2018-06-30] MEDS: CYCLOBENZAPRINE 10 MG TABLET PO SCH ×3 (11:35→21:02)
[2018-06-30 11:39] VITALS: BP 115/68
[2018-06-30] MEDS: HYDROCHLOROTHIAZIDE 25 MG TABLET PO SCH (11:40)
[2018-06-30] MEDS: FUROSEMIDE 40 MG TABLET PO SCH (11:40)
[2018-06-30] MEDS: METOPROLOL SUCCINATE 25 MG TAB.ER.24H PO SCH (11:40)
[2018-06-30] MEDS ORDERED: FUROSEMIDE 20 MG/2 ML IV ONE (13:00)
[2018-06-30 15:23] VITALS: BP 108/74
[2018-06-30 19:42] VITALS: BP 130/74
[2018-06-30] MEDS: LEVOMILNACIPRAN HYDROCHLORIDE 40 MG PO SCH (19:46)
[2018-06-30] MEDS: TRAZODONE 100MG TABLET PO SCH (21:02)
[2018-06-30] MEDS: ROPINIROLE 1MG TABLET PO SCH (21:02)
[2018-06-30] MEDS: MIRTAZAPINE 15 MG TABLET PO SCH (21:02)
[2018-06-30] MEDS: ATORVASTATIN 40 MG TABLET PO SCH (21:02)
[2018-07-01] MEDS: OXYcodone IR 5MG TABLET PO PRN ×4 (01:23→21:48)
[2018-07-01 01:33] VITALS: BP 119/78
[2018-07-01 05:04] LABS: ALBUMIN 2.4 g/dL (3.4-5.0); ANION GAP 7 mmol/L (5-15); CALCIUM 9.2 mg/dL (8.5-10.1); CHLORIDE 101 mmol/L (98-107); CREATININE 0.93 mg/dL (0.55-1.02)
[2018-07-01 05:10] LABS: MEAN CORPUSCULAR HEMOGLOBIN 29.2 pg (27.0-34.8); MEAN CORPUSCULAR HGB CONC 33.6 g/dL (32.4-35.8); MEAN CORPUSCULAR VOLUME 86.8 fL (80-100); PLATELET COUNT 130 x10^3/uL (130-400); RED BLOOD COUNT 4.64 x10^6/uL (3.82-5.3); RED CELL DISTRIBUTION WIDTH 14.7 % (9.6-15.2)
[2018-07-01 05:48] LABS: MD YES
[2018-07-01 05:52] LABS: BAND#(MANUAL) 1.92 x10^3/uL; BANDS%(MANUAL) 15 % (0-7); LYMPH#(MANUAL) 1.28 x10^3/uL (1-3.4); LYMPHS% (MANUAL) 10 % (22-44); METAMYELOCYTES# (MANUAL) 0.13 x10^3/uL (0-0); METAMYELOCYTES% (MANUAL) 1 % (0-1); MONOS#(MANUAL) 1.15 x10^3/uL (0.3-2.7); MONOS% (MANUAL) 9 % (2-9); SEG#(MANUAL) 8.32 x10^3/uL (1.8-6.8); SEGS% (MANUAL) 65 % (42-75)
[2018-07-01 05:53] LABS: <PLATELET ESTIMATE> ADEQUATE; <RBC MORPHOLOGY> NORMAL; GIANT PLATELETS 1+; LARGE PLATELETS 1+
[2018-07-01] MEDS: ALBUTEROL/IPRATROPIUM 2.5MG/0.5MG, 3 ML NPPB SCH ×4 (07:00→20:10)
[2018-07-01 07:49] VITALS: BP 122/73
[2018-07-01] MEDS: POTASSIUM CHLORIDE 20 MEQ TAB.ER.PRT PO SCH ×2 (08:10→17:33)
[2018-07-01] MEDS: CEFTRIAXONE PMX 1GM/50ML 50 ML IV SCH (08:10)
[2018-07-01] MEDS: BISACODYL 5 MG EC TABLET PO SCH ×2 (08:11→19:19)
[2018-07-01] MEDS: FUROSEMIDE 40 MG TABLET PO SCH (08:11)
[2018-07-01] MEDS: OMEPRAZOLE 20 MG CAPSULE.DR PO SCH (08:11)
[2018-07-01] MEDS: METHYLPHENIDATE 10 MG TABLET PO SCH (08:11)
[2018-07-01] MEDS: CYCLOBENZAPRINE 10 MG TABLET PO SCH ×3 (08:11→20:22)
[2018-07-01] MEDS: TICAGRELOR 90 MG TABLET PO SCH ×2 (08:12→20:22)
[2018-07-01] MEDS: LUBIPROSTONE 24 MCG CAPSULE PO SCH (08:12)
[2018-07-01] MEDS: METOPROLOL SUCCINATE 25 MG TAB.ER.24H PO SCH (08:12)
[2018-07-01] MEDS: HYDROCHLOROTHIAZIDE 25 MG TABLET PO SCH (08:12)
[2018-07-01] MEDS: ASPIRIN 81 MG TABLET CHEW PO SCH (08:12)
[2018-07-01] MEDS: BUPROPION SR 150 MG TABLET PO SCH ×2 (08:12→20:22)
[2018-07-01] MEDS: LISDEXAMFETAMINE DIMESYLATE 40 MG PO SCH (08:13)
[2018-07-01] MEDS: ARIPIPRAZOLE 5 MG TABLET PO SCH (08:13)
[2018-07-01] MEDS: FLUTICASONE NASAL SPRAY 16GM NAS SCH ×2 (08:13→19:18)
[2018-07-01] MEDS: TEMPLATE NON-FORMULARY MED. (Linaclotide** (Linzess**) 145 MCG) PO SCH (08:13)
[2018-07-01] MEDS: SENNA/DOCUSATE TABLET PO SCH (08:14)
[2018-07-01] MEDS: CLOBETASOL PROPIONATE CRM 0.05%, 15GM TP SCH ×2 (08:14→19:19)
[2018-07-01] MEDS: PSYLLIUM PACKET PO SCH ×2 (08:14→19:19)
[2018-07-01] MEDS: methylPREDNISolone SOD SUCC 40 MG/ML IV SCH ×2 (09:30→17:33)
[2018-07-01] MEDS: AZITHROMYCIN 500 MG in SODIUM CHLORIDE 0.9% 250 ML IV SCH (09:30)
[2018-07-01] MEDS: GUAIFENESIN ER 600 MG TABLET PO SCH ×2 (09:30→20:21)
[2018-07-01] MEDS ORDERED: DILTIAZEM 5 MG/ML, 5ML IVPush ONE (11:00)
[2018-07-01] MEDS ORDERED: AMIODARONE 50 MG/ML, 3ML IVPush ONE (12:00)
[2018-07-01] MEDS ORDERED: AMIODARONE 150 MG in DEXTROSE 5% 100 ML IV ONE ×2 (12:00→17:00)
[2018-07-01] MEDS ORDERED: AMIODARONE 900 MG in DEXTROSE 5% 482 ML IV PRN (12:00)
[2018-07-01] MEDS ORDERED: FILTER 0.22 MICRON IV PRN (12:30)
[2018-07-01 12:35] VITALS: BP 113/75
[2018-07-01] MEDS: LEVOMILNACIPRAN HYDROCHLORIDE 40 MG PO SCH (19:19)
[2018-07-01 20:03] VITALS: BP 109/76
[2018-07-01] MEDS: MIRTAZAPINE 15 MG TABLET PO SCH (20:21)
[2018-07-01] MEDS: ROPINIROLE 1MG TABLET PO SCH (20:21)
[2018-07-01] MEDS: ATORVASTATIN 40 MG TABLET PO SCH (20:22)
[2018-07-01] MEDS: TRAZODONE 100MG TABLET PO SCH (21:48)
[2018-07-02 01:08] VITALS: BP 112/76
[2018-07-02] MEDS: methylPREDNISolone SOD SUCC 40 MG/ML IV SCH (01:14)
[2018-07-02] MEDS: OXYcodone IR 5MG TABLET PO PRN ×4 (04:00→22:01)
[2018-07-02 06:44] VITALS: BP 111/74
[2018-07-02] MEDS: ALBUTEROL/IPRATROPIUM 2.5MG/0.5MG, 3 ML NPPB SCH ×4 (07:00→18:49)
[2018-07-02] MEDS: CEFTRIAXONE PMX 1GM/50ML 50 ML IV SCH (08:18)
[2018-07-02] MEDS: HYDROCHLOROTHIAZIDE 25 MG TABLET PO SCH (08:19)
[2018-07-02] MEDS: POTASSIUM CHLORIDE 20 MEQ TAB.ER.PRT PO SCH ×2 (08:19→16:21)
[2018-07-02] MEDS: TICAGRELOR 90 MG TABLET PO SCH ×2 (08:19→21:28)
[2018-07-02] MEDS: OMEPRAZOLE 20 MG CAPSULE.DR PO SCH (08:21)
[2018-07-02] MEDS: GUAIFENESIN ER 600 MG TABLET PO SCH ×2 (08:21→21:29)
[2018-07-02] MEDS: BUPROPION SR 150 MG TABLET PO SCH ×2 (08:21→21:30)
[2018-07-02] MEDS: METHYLPHENIDATE 10 MG TABLET PO SCH (08:21)
[2018-07-02] MEDS: ASPIRIN 81 MG TABLET CHEW PO SCH (08:21)
[2018-07-02] MEDS: METOPROLOL SUCCINATE 25 MG TAB.ER.24H PO SCH (08:22)
[2018-07-02] MEDS: SENNA/DOCUSATE TABLET PO SCH (08:22)
[2018-07-02] MEDS: CYCLOBENZAPRINE 10 MG TABLET PO SCH ×3 (08:22→21:29)
[2018-07-02] MEDS: CLOBETASOL PROPIONATE CRM 0.05%, 15GM TP SCH ×2 (08:22→21:00)
[2018-07-02] MEDS: PSYLLIUM PACKET PO SCH ×2 (08:23→21:00)
[2018-07-02] MEDS: FLUTICASONE NASAL SPRAY 16GM NAS SCH ×2 (08:23→21:00)
[2018-07-02] MEDS: LISDEXAMFETAMINE DIMESYLATE 40 MG PO SCH (08:24)
[2018-07-02] MEDS: TEMPLATE NON-FORMULARY MED. (Linaclotide** (Linzess**) 145 MCG) PO SCH (08:24)
[2018-07-02] MEDS: FUROSEMIDE 40 MG TABLET PO SCH (08:24)
[2018-07-02] MEDS: LUBIPROSTONE 24 MCG CAPSULE PO SCH (08:48)
[2018-07-02] MEDS: ARIPIPRAZOLE 5 MG TABLET PO SCH (08:48)
[2018-07-02] MEDS: AZITHROMYCIN 500 MG in SODIUM CHLORIDE 0.9% 250 ML IV SCH (08:49)
[2018-07-02] MEDS: BISACODYL 5 MG EC TABLET PO SCH ×2 (08:49→21:29)
[2018-07-02 09:34] LABS: ANION GAP 10 mmol/L (5-15); CALCIUM 9.2 mg/dL (8.5-10.1); CHLORIDE 98 mmol/L (98-107); CREATININE 0.83 mg/dL (0.55-1.02)
[2018-07-02] MEDS: AMIODARONE 200 MG TABLET PO SCH ×2 (10:08→21:29)
[2018-07-02 12:47] VITALS: BP 114/75
[2018-07-02 19:00] VITALS: BP 121/72
[2018-07-02] MEDS: LEVOMILNACIPRAN HYDROCHLORIDE 40 MG PO SCH (21:00)
[2018-07-02] MEDS: ATORVASTATIN 40 MG TABLET PO SCH (21:29)
[2018-07-02] MEDS: ROPINIROLE 1MG TABLET PO SCH (21:29)
[2018-07-02] MEDS: MIRTAZAPINE 15 MG TABLET PO SCH (21:29)
[2018-07-02] MEDS: TRAZODONE 100MG TABLET PO SCH (21:29)
[2018-07-02] MEDS ORDERED: methylPREDNISolone SOD SUCC 40 MG/ML IV SCH (21:30)
[2018-07-03 02:24] VITALS: BP 124/79
[2018-07-03] MEDS: ACETAMINOPHEN 325 MG TABLET PO PRN ×2 (02:37→14:44)
[2018-07-03] MEDS: OXYcodone IR 5MG TABLET PO PRN ×4 (04:05→22:21)
[2018-07-03 05:26] LABS: MEAN CORPUSCULAR HEMOGLOBIN 29.2 pg (27.0-34.8); MEAN CORPUSCULAR HGB CONC 33.3 g/dL (32.4-35.8); MEAN CORPUSCULAR VOLUME 87.5 fL (80-100); MEAN PLATELET VOLUME 11.1 fL (7.4-10.4); PLATELET COUNT 183 x10^3/uL (130-400); RED BLOOD COUNT 4.64 x10^6/uL (3.82-5.3)
[2018-07-03 05:31] LABS: ANION GAP 10 mmol/L (5-15); CALCIUM 9.3 mg/dL (8.5-10.1); CHLORIDE 96 mmol/L (98-107)
[2018-07-03 05:33] LABS: CREATININE 1.05 mg/dL (0.55-1.02)
[2018-07-03 05:48] LABS: MD YES
[2018-07-03 05:50] LABS: BAND#(MANUAL) 0.99 x10^3/uL; BANDS%(MANUAL) 5 % (0-7); LYMPH#(MANUAL) 1.58 x10^3/uL (1-3.4); LYMPHS% (MANUAL) 8 % (22-44); METAMYELOCYTES% (MANUAL) 1 % (0-1); MONOS% (MANUAL) 1 % (2-9); MYELOCYTES# (MANUAL) 0.79 x10^3/uL (0-0); MYELOCYTES% (MANUAL) 4 % (0-0); SEG#(MANUAL) 15.96 x10^3/uL (1.8-6.8); SEGS% (MANUAL) 81 % (42-75)
[2018-07-03 05:51] LABS: <PLATELET ESTIMATE> ADEQUATE; <RBC MORPHOLOGY> NORMAL
[2018-07-03 05:52] LABS: LARGE PLATELETS 1+
[2018-07-03 07:03] VITALS: BP 128/83
[2018-07-03] MEDS: CEFTRIAXONE PMX 1GM/50ML 50 ML IV SCH (08:52)
[2018-07-03] MEDS: CLOBETASOL PROPIONATE CRM 0.05%, 15GM TP SCH ×2 (09:00→20:21)
[2018-07-03] MEDS: LISDEXAMFETAMINE DIMESYLATE 40 MG PO SCH (09:00)
[2018-07-03] MEDS: ARIPIPRAZOLE 5 MG TABLET PO SCH (09:00)
[2018-07-03] MEDS: SENNA/DOCUSATE TABLET PO SCH (09:00)
[2018-07-03] MEDS: TEMPLATE NON-FORMULARY MED. (Linaclotide** (Linzess**) 145 MCG) PO SCH (09:00)
[2018-07-03] MEDS: FLUTICASONE NASAL SPRAY 16GM NAS SCH ×2 (09:00→20:21)
[2018-07-03] MEDS: METHYLPHENIDATE 10 MG TABLET PO SCH (09:00)
[2018-07-03] MEDS: ALBUTEROL/IPRATROPIUM 2.5MG/0.5MG, 3 ML NPPB SCH ×4 (09:02→21:00)
[2018-07-03] MEDS: PSYLLIUM PACKET PO SCH ×3 (09:10→20:22)
[2018-07-03] MEDS: GUAIFENESIN ER 600 MG TABLET PO SCH ×2 (09:11→20:14)
[2018-07-03] MEDS: OMEPRAZOLE 20 MG CAPSULE.DR PO SCH (09:13)
[2018-07-03] MEDS: TICAGRELOR 90 MG TABLET PO SCH ×2 (09:13→20:14)
[2018-07-03] MEDS: METOPROLOL SUCCINATE 25 MG TAB.ER.24H PO SCH (09:13)
[2018-07-03] MEDS: POTASSIUM CHLORIDE 20 MEQ TAB.ER.PRT PO SCH ×2 (09:14→16:22)
[2018-07-03] MEDS: FUROSEMIDE 40 MG TABLET PO SCH (09:14)
[2018-07-03] MEDS: AMIODARONE 200 MG TABLET PO SCH ×2 (09:15→20:15)
[2018-07-03] MEDS: HYDROCHLOROTHIAZIDE 25 MG TABLET PO SCH (09:15)
[2018-07-03] MEDS: BISACODYL 5 MG EC TABLET PO SCH ×2 (09:15→20:15)
[2018-07-03] MEDS: BUPROPION SR 150 MG TABLET PO SCH ×2 (09:15→20:15)
[2018-07-03] MEDS: predniSONE 50MG TABLET PO SCH (09:15)
[2018-07-03] MEDS: ASPIRIN 81 MG TABLET CHEW PO SCH (09:15)
[2018-07-03] MEDS: CYCLOBENZAPRINE 10 MG TABLET PO SCH ×3 (09:15→20:14)
[2018-07-03] MEDS: LUBIPROSTONE 24 MCG CAPSULE PO SCH (09:15)
[2018-07-03] MEDS: AZITHROMYCIN 500 MG in SODIUM CHLORIDE 0.9% 250 ML IV SCH (10:34)
[2018-07-03] MEDS ORDERED: SODIUM CHLORIDE 0.9%, 500ML IVBOLUS ONE (12:30)
[2018-07-03 15:46] VITALS: BP 136/87
[2018-07-03 18:39] VITALS: BP 117/72
[2018-07-03] MEDS: ROPINIROLE 1MG TABLET PO SCH (20:14)
[2018-07-03] MEDS: ATORVASTATIN 40 MG TABLET PO SCH (20:14)
[2018-07-03] MEDS: TRAZODONE 100MG TABLET PO SCH (20:14)
[2018-07-03] MEDS: MIRTAZAPINE 15 MG TABLET PO SCH (20:16)
[2018-07-03] MEDS: LEVOMILNACIPRAN HYDROCHLORIDE 40 MG PO SCH (20:21)
[2018-07-04 00:28] VITALS: BP 109/70
[2018-07-04] MEDS: OXYcodone IR 5MG TABLET PO PRN ×2 (04:29→10:22)
[2018-07-04 04:50] LABS: MEAN CORPUSCULAR HEMOGLOBIN 29.2 pg (27.0-34.8); MEAN CORPUSCULAR HGB CONC 33.3 g/dL (32.4-35.8); MEAN CORPUSCULAR VOLUME 87.8 fL (80-100); MEAN PLATELET VOLUME 10.6 fL (7.4-10.4); PLATELET COUNT 199 x10^3/uL (130-400); RED BLOOD COUNT 4.86 x10^6/uL (3.82-5.3)
[2018-07-04 05:02] LABS: ANION GAP 8 mmol/L (5-15); CALCIUM 9.4 mg/dL (8.5-10.1); CHLORIDE 99 mmol/L (98-107); CREATININE 1.14 mg/dL (0.55-1.02)
[2018-07-04 05:12] LABS: MD YES
[2018-07-04 05:14] LABS: <PLATELET ESTIMATE> ADEQUATE; <RBC MORPHOLOGY> NORMAL; BAND#(MANUAL) 0.79 x10^3/uL; BANDS%(MANUAL) 5 % (0-7); LARGE PLATELETS 1+; LYMPHS% (MANUAL) 19 % (22-44); METAMYELOCYTES# (MANUAL) 0.16 x10^3/uL (0-0); METAMYELOCYTES% (MANUAL) 1 % (0-1); MONOS#(MANUAL) 1.11 x10^3/uL (0.3-2.7); MONOS% (MANUAL) 7 % (2-9); MYELOCYTES# (MANUAL) 0.16 x10^3/uL (0-0); MYELOCYTES% (MANUAL) 1 % (0-0); SEG#(MANUAL) 10.59 x10^3/uL (1.8-6.8); SEGS% (MANUAL) 67 % (42-75)
[2018-07-04] MEDS ORDERED: POTASSIUM CHLORIDE 20 MEQ TAB.ER.PRT PO ONE ×2 (07:00→14:30)
[2018-07-04] MEDS: ALBUTEROL/IPRATROPIUM 2.5MG/0.5MG, 3 ML NPPB SCH ×3 (07:00→14:11)
[2018-07-04 08:00] VITALS: BP 113/74
[2018-07-04] MEDS: CYCLOBENZAPRINE 10 MG TABLET PO SCH (08:00)
[2018-07-04] MEDS: GUAIFENESIN ER 600 MG TABLET PO SCH (08:00)
[2018-07-04] MEDS: OMEPRAZOLE 20 MG CAPSULE.DR PO SCH (08:00)
[2018-07-04] MEDS: METHYLPHENIDATE 10 MG TABLET PO SCH (08:00)
[2018-07-04] MEDS: BISACODYL 5 MG EC TABLET PO SCH (08:00)
[2018-07-04] MEDS ORDERED: SODIUM CHLORIDE 0.9%, 500ML IVBOLUS PRN (08:00)
[2018-07-04] MEDS: PSYLLIUM PACKET PO SCH (08:00)
[2018-07-04] MEDS: AMIODARONE 200 MG TABLET PO SCH (08:00)
[2018-07-04] MEDS: ASPIRIN 81 MG TABLET CHEW PO SCH (08:00)
[2018-07-04] MEDS: predniSONE 50MG TABLET PO SCH (08:00)
[2018-07-04] MEDS: HYDROCHLOROTHIAZIDE 25 MG TABLET PO SCH (08:00)
[2018-07-04] MEDS: CEFTRIAXONE PMX 1GM/50ML 50 ML IV SCH (08:00)
[2018-07-04] MEDS: TICAGRELOR 90 MG TABLET PO SCH (08:00)
[2018-07-04] MEDS: METOPROLOL SUCCINATE 25 MG TAB.ER.24H PO SCH (08:00)
[2018-07-04] MEDS: ARIPIPRAZOLE 5 MG TABLET PO SCH (08:00)
[2018-07-04] MEDS: BUPROPION SR 150 MG TABLET PO SCH (08:00)
[2018-07-04] MEDS: LUBIPROSTONE 24 MCG CAPSULE PO SCH (08:00)
[2018-07-04] MEDS: CLOBETASOL PROPIONATE CRM 0.05%, 15GM TP SCH (08:00)
[2018-07-04] MEDS: TEMPLATE NON-FORMULARY MED. (Linaclotide** (Linzess**) 145 MCG) PO SCH (09:00)
[2018-07-04] MEDS: LISDEXAMFETAMINE DIMESYLATE 40 MG PO SCH (09:00)
[2018-07-04] MEDS: FLUTICASONE NASAL SPRAY 16GM NAS SCH (09:00)
[2018-07-04] MEDS: SENNA/DOCUSATE TABLET PO SCH (09:00)
[2018-07-04] MEDS: AZITHROMYCIN 500 MG in SODIUM CHLORIDE 0.9% 250 ML IV SCH (10:22)
[2018-07-04 13:53] LABS: ANION GAP 6 mmol/L (5-15); CALCIUM 8.5 mg/dL (8.5-10.1); CHLORIDE 101 mmol/L (98-107)
[2018-07-04 13:54] LABS: CREATININE 0.96 mg/dL (0.55-1.02)
[2018-07-04 14:04] VITALS: BP 104/72
[2018-07-04] MEDS ORDERED: PRED50TA PO (14:09)
[2018-07-04] MEDS ORDERED: LEVO100T5 PO (14:09)
[2018-07-04] MEDS ORDERED: AMIO200T42 PO (14:09)
== END 2018-07-04 15:45 | disposition home health service (06) | DRG 871 ==
LOC: ED 08:53 → EDIP 09:00 → 5SO 11:31 → DCLOUNGE 07-04 15:30
PROVIDERS: ADMIT Hospitalist; ATTEND Hospitalist
DX: A41.9 Sepsis, unspecified organism (principal); J18.9 Pneumonia, unspecified organism; J96.21 Acute and chronic respiratory failure with hypoxia; N17.9 Acute kidney failure, unspecified; J44.0 Chronic obstructive pulmonary disease with (acute) lower respiratory infection; I48.92 Unspecified atrial flutter; D68.69 Other thrombophilia; F41.9 Anxiety disorder, unspecified; Z99.81 Dependence on supplemental oxygen; E03.9 Hypothyroidism, unspecified; I10 Essential (primary) hypertension; G25.81 Restless legs syndrome; E78.5 Hyperlipidemia, unspecified; F32.9 Major depressive disorder, single episode, unspecified; G89.29 Other chronic pain; I25.10 Atherosclerotic heart disease of native coronary artery without angina pectoris; K59.00 Constipation, unspecified; E87.6 Hypokalemia; E83.42 Hypomagnesemia; Z66 Do not resuscitate; K57.90 Diverticulosis of intestine, part unspecified, without perforation or abscess without bleeding; I27.20 Pulmonary hypertension, unspecified; K52.9 Noninfective gastroenteritis and colitis, unspecified; G47.00 Insomnia, unspecified; Z80.9 Family history of malignant neoplasm, unspecified; Z95.5 Presence of coronary angioplasty implant and graft; Z90.49 Acquired absence of other specified parts of digestive tract; Z90.710 Acquired absence of both cervix and uterus; Z82.49 Family history of ischemic heart disease and other diseases of the circulatory system; Z88.2 Allergy status to sulfonamides; Z88.6 Allergy status to analgesic agent; Z88.8 Allergy status to other drugs, medicaments and biological substances; Z87.891 Personal history of nicotine dependence; Z71.6 Tobacco abuse counseling; Z85.43 Personal history of malignant neoplasm of ovary; Z79.899 Other long term (current) drug therapy
CPT/HCPCS: 36415; 36600; 71045; 80048; 80053; 80061; 82040; 82803; 83605; 83735; 83880; 84145; 84439; 84443; 84481; 84484; 85025; 87040; 87400; 93005; 93306; 94640; 96365; 96375; 99291; G0378; J0456; J0696; J7620; J0282; J1940; J2920; J2930; J3475; J7030; J7040; J7050; J7060; J7512

== ENCOUNTER 2018-10-14 18:55 | Inpatient (IN) | payer MEDICARE ==
[~2018-10-14] VITALS: Ht 165.1 cm; Wt 64.4 kg
[~2018-10-14 18:55] MED LIST changes: +AMIO200T42 PO; +LEVO100T5 PO; +LIOT5TAB3 PO; +PRED50TA PO
[2018-10-14 19:29] LABS: BASOPHILS # (AUTO) 0.01 x10^3/uL (0-0.1); BASOPHILS % (AUTO) 0 % (0-1); EOSINOPHILS # (AUTO) 0.11 x10^3/uL (0-0.4); EOSINOPHILS % (AUTO) 1 % (1-7); LYMPHOCYTES # (AUTO) 1.76 x10^3/uL (1-3.4); LYMPHOCYTES % (AUTO) 23 % (22-44); MD NO; MEAN CORPUSCULAR HEMOGLOBIN 29.7 pg (27.0-34.8); MEAN CORPUSCULAR HGB CONC 33.3 g/dL (32.4-35.8); MEAN PLATELET VOLUME 11.2 fL (7.4-10.4); MONOCYTES # (AUTO) 0.71 x10^3/uL (0.2-0.8); MONOCYTES % (AUTO) 10 % (2-9); NEUTROPHILS # (AUTO) 4.93 x10^3/uL (1.8-6.8); NEUTROPHILS % (AUTO) 66 % (42-75); PLATELET COUNT 166 x10^3/uL (130-400); RED BLOOD COUNT 5.28 x10^6/uL (3.82-5.3); RED CELL DISTRIBUTION WIDTH 13.8 % (9.6-15.2)
[2018-10-14 19:40] LABS: ALANINE AMINOTRANSFERASE 46 U/L (12-78); ALBUMIN 4.2 g/dL (3.4-5.0); ANION GAP 10 mmol/L (5-15); CALCIUM 10.3 mg/dL (8.5-10.1); CHLORIDE 98 mmol/L (98-107); CREATININE 1.18 mg/dL (0.55-1.02)
[2018-10-14 19:44] LABS: ALKALINE PHOSPHATASE 129 U/L (45-117); BILIRUBIN,TOTAL 0.7 mg/dL (0.2-1.0); TOTAL PROTEIN 8.5 g/dL (6.4-8.2); TROPONIN I < 0.015 ng/mL (0.000-0.045)
--- NOTE | 2018-10-14 20:02 | NUR ---
ERP WAS IN TO SEE PT. PT UNDERSTANDS POC. A&OX4, NO DISTRESS NOTED.
--- NOTE | 2018-10-14 21:08 | NUR ---
need iv for CTA
--- NOTE | 2018-10-14 21:22 | NUR ---
PT ARRIVES TO ED FROM WITH C/O SOB X 2 WEEKS. PT REPORTS SHE HAS NOT BEEN FEELING WELL AND NO IMPROVEMENT. PT AT HAD INCREASE IN SIZE OF PULMONARY NODULES. PT PLACED ON ALL MONITORS AND CALL LIGHT REACH. PIV PLACED.
--- NOTE | 2018-10-14 21:36 | NUR ---
PT BACK FROM CTA.
[2018-10-14] MEDS ORDERED: OMNIPAQUE 350 MG/ML, 100ML BOTTLE ONE (21:39)
[2018-10-14] MEDS ORDERED: AZITHROMYCIN 500 MG in SODIUM CHLORIDE 0.9% 250 ML IV ONE (23:00)
[2018-10-14] MEDS ORDERED: POTASSIUM CHLORIDE 40 MEQ in SODIUM CHLORIDE 0.9% 500 ML IV ONE (23:00)
--- NOTE | 2018-10-14 23:55 | NUR ---
REPORT FROM JUANI PEREA CARE OF PT
[2018-10-15] MEDS ORDERED: BISACODYL 10 MG SUPP PR PRN
[2018-10-15] MEDS ORDERED: OXYcodone IR 5MG TABLET PO PRN
[2018-10-15] MEDS ORDERED: ONDANSETRON ODT 4 MG PO PRN
[2018-10-15] MEDS ORDERED: POLYETHYLENE GLYCOL 17 GM PACKET PO PRN
[2018-10-15] MEDS ORDERED: TRAZODONE 100MG TABLET PO SCH
[2018-10-15] MEDS ORDERED: TEMPLATE NON-FORMULARY MED. (Albuterol Sulfate (Ventolin Hfa) 2 PUFF) INH PRN
--- NOTE | 2018-10-15 00:08 | NUR ---
REPORT TO MARTA
[2018-10-15] MEDS ORDERED: ZOLP5TAB6 PO (00:39)
[2018-10-15] MEDS ORDERED: ALBUTEROL SULFATE 2.5 MG/3 ML NPPB PRN (01:00)
[2018-10-15 01:02] VITALS: BP 117/82
[2018-10-15] MEDS ORDERED: ZOLPIDEM 5MG TABLET PO PRN (02:00)
[2018-10-15] MEDS: MIRTAZAPINE 15 MG TABLET PO SCH ×2 (02:13→21:54)
[2018-10-15] MEDS: GUAIFENESIN/DM 200-20MG, 10ML UDC PO PRN ×2 (02:14→14:23)
[2018-10-15] MEDS: CLOBETASOL PROPIONATE CRM 0.05%, 15GM TP SCH ×3 (02:15→21:00)
[2018-10-15] MEDS: SIMVASTATIN 20 MG TABLET PO SCH ×2 (02:15→21:53)
[2018-10-15] MEDS: BUPROPION SR 150 MG TABLET PO SCH ×3 (02:15→21:54)
[2018-10-15] MEDS: ROPINIROLE 1MG TABLET PO SCH ×2 (02:15→21:53)
[2018-10-15] MEDS: OXYcodone IR 5MG TABLET PO PRN ×3 (02:15→23:07)
[2018-10-15] MEDS: LEVOMILNACIPRAN HYDROCHLORIDE 40 MG PO SCH ×2 (02:16→21:00)
[2018-10-15] MEDS: POTASSIUM CHLORIDE 20 MEQ TAB.ER.PRT PO SCH ×4 (02:16→18:54)
[2018-10-15] MEDS: TICAGRELOR 90 MG TABLET PO SCH ×3 (02:16→21:53)
[2018-10-15] MEDS: AMIODARONE 200 MG TABLET PO SCH ×3 (02:16→21:54)
[2018-10-15] MEDS: methylPREDNISolone SOD SUCC 125 MG/2 ML IVPush SCH ×4 (02:17→21:53)
[2018-10-15] MEDS ORDERED: POTASSIUM CHLORIDE 40 MEQ in SODIUM CHLORIDE 0.9% 500 ML IV ONE (02:30)
[2018-10-15 06:24] LABS: BASOPHILS # (AUTO) 0.02 x10^3/uL (0-0.1); BASOPHILS % (AUTO) 0 % (0-1); EOSINOPHILS % (AUTO) 0 % (1-7); LYMPHOCYTES # (AUTO) 0.93 x10^3/uL (1-3.4); LYMPHOCYTES % (AUTO) 16 % (22-44); MD NO; MEAN CORPUSCULAR HGB CONC 33.9 g/dL (32.4-35.8); MEAN CORPUSCULAR VOLUME 88.6 fL (80-100); MEAN PLATELET VOLUME 11.2 fL (7.4-10.4); MONOCYTES # (AUTO) 0.22 x10^3/uL (0.2-0.8); MONOCYTES % (AUTO) 4 % (2-9); NEUTROPHILS # (AUTO) 4.71 x10^3/uL (1.8-6.8); NEUTROPHILS % (AUTO) 80 % (42-75); PLATELET COUNT 148 x10^3/uL (130-400); RED BLOOD COUNT 4.73 x10^6/uL (3.82-5.3); RED CELL DISTRIBUTION WIDTH 13.7 % (9.6-15.2)
[2018-10-15 06:34] LABS: ALANINE AMINOTRANSFERASE 38 U/L (12-78); ALBUMIN 3.4 g/dL (3.4-5.0); ANION GAP 6 mmol/L (5-15); CALCIUM 9.3 mg/dL (8.5-10.1); CHLORIDE 103 mmol/L (98-107); CREATININE 0.88 mg/dL (0.55-1.02)
[2018-10-15 06:36] LABS: ALKALINE PHOSPHATASE 102 U/L (45-117); BILIRUBIN,TOTAL 0.4 mg/dL (0.2-1.0); TOTAL PROTEIN 7.2 g/dL (6.4-8.2)
[2018-10-15 07:57] VITALS: BP 133/82
[2018-10-15] MEDS ORDERED: POTASSIUM CHLORIDE 20 MEQ TAB.ER.PRT PO SCH (08:00)
[2018-10-15] MEDS ORDERED: ALBUTEROL/IPRATROPIUM 2.5MG/0.5MG, 3 ML HHN SCH (08:00)
[2018-10-15] MEDS ORDERED: ALBUTEROL/IPRATROPIUM 2.5MG/0.5MG, 3 ML NPPB PRN (08:30)
[2018-10-15] MEDS: LISDEXAMFETAMINE DIMESYLATE 40 MG PO SCH (09:00)
[2018-10-15] MEDS ORDERED: ARIPIPRAZOLE 2 MG TABLET PO SCH (09:00)
[2018-10-15] MEDS: LINACLOTIDE 145 MCG HOMEMEDPO SCH (09:00)
[2018-10-15] MEDS: HYDROCHLOROTHIAZIDE 25 MG TABLET PO SCH ×2 (09:00→09:43)
[2018-10-15] MEDS: FLUTICASONE NASAL SPRAY 16GM NAS SCH ×2 (09:00→21:00)
[2018-10-15] MEDS: LEVOTHYROXINE 100 MCG TABLET PO SCH (09:43)
[2018-10-15] MEDS: METOPROLOL SUCCINATE 25 MG TAB.ER.24H PO SCH (09:44)
[2018-10-15] MEDS: LUBIPROSTONE 24 MCG CAPSULE PO SCH (09:44)
[2018-10-15] MEDS: GUAIFENESIN 200 MG TABLET PO SCH ×4 (09:45→21:53)
[2018-10-15] MEDS: BISACODYL 5 MG EC TABLET PO SCH ×2 (09:45→21:54)
[2018-10-15] MEDS: ASPIRIN 81 MG TABLET EC PO SCH (09:45)
[2018-10-15] MEDS: OMEPRAZOLE 20 MG CAPSULE.DR PO SCH (09:45)
[2018-10-15] MEDS: SENNA/DOCUSATE TABLET PO SCH (09:46)
[2018-10-15] MEDS: ARIPIPRAZOLE 5 MG TABLET PO SCH (09:46)
[2018-10-15] MEDS: SODIUM CHLORIDE FLUSH 10ML SYR IVF SCH ×3 (09:47→21:53)
[2018-10-15] MEDS: METHYLPHENIDATE 10 MG TABLET PO SCH (11:07)
[2018-10-15 13:23] VITALS: BP 127/80
[2018-10-15 19:02] VITALS: BP 114/68
[2018-10-15] MEDS: ACETAMINOPHEN 325 MG TABLET PO PRN (22:04)
[2018-10-16 02:20] VITALS: BP 125/78
[2018-10-16] MEDS: methylPREDNISolone SOD SUCC 125 MG/2 ML IVPush SCH ×2 (03:49→16:14)
[2018-10-16] MEDS: GUAIFENESIN/DM 200-20MG, 10ML UDC PO PRN ×2 (03:55→14:38)
[2018-10-16] MEDS: GUAIFENESIN 200 MG TABLET PO SCH ×4 (05:55→21:33)
[2018-10-16] MEDS: OXYcodone IR 5MG TABLET PO PRN ×3 (05:55→21:33)
[2018-10-16 06:45] VITALS: BP 120/68
[2018-10-16 07:15] LABS: ALBUMIN 3.1 g/dL (3.4-5.0); ANION GAP 10 mmol/L (5-15); CALCIUM 9.2 mg/dL (8.5-10.1); CHLORIDE 107 mmol/L (98-107)
[2018-10-16 07:20] LABS: ALANINE AMINOTRANSFERASE 32 U/L (12-78); ALKALINE PHOSPHATASE 92 U/L (45-117); BILIRUBIN,TOTAL 0.4 mg/dL (0.2-1.0); CREATININE 0.98 mg/dL (0.55-1.02); TOTAL PROTEIN 6.8 g/dL (6.4-8.2)
[2018-10-16] MEDS ORDERED: POTASSIUM CHLORIDE 40 MEQ in SODIUM CHLORIDE 0.9% 500 ML IV ONE (07:30)
[2018-10-16] MEDS: FLUTICASONE NASAL SPRAY 16GM NAS SCH ×2 (09:00→21:00)
[2018-10-16] MEDS: SENNA/DOCUSATE TABLET PO SCH (09:00)
[2018-10-16] MEDS: CLOBETASOL PROPIONATE CRM 0.05%, 15GM TP SCH ×2 (09:00→21:00)
[2018-10-16] MEDS: LINACLOTIDE 145 MCG HOMEMEDPO SCH (09:00)
[2018-10-16] MEDS: LISDEXAMFETAMINE DIMESYLATE 40 MG PO SCH (09:00)
[2018-10-16] MEDS: TICAGRELOR 90 MG TABLET PO SCH ×2 (09:15→21:33)
[2018-10-16] MEDS: AMIODARONE 200 MG TABLET PO SCH ×2 (09:16→21:33)
[2018-10-16] MEDS: OMEPRAZOLE 20 MG CAPSULE.DR PO SCH (09:16)
[2018-10-16] MEDS: LUBIPROSTONE 24 MCG CAPSULE PO SCH (09:16)
[2018-10-16] MEDS: BUPROPION SR 150 MG TABLET PO SCH ×2 (09:16→21:33)
[2018-10-16] MEDS: ARIPIPRAZOLE 5 MG TABLET PO SCH (09:16)
[2018-10-16] MEDS: BISACODYL 5 MG EC TABLET PO SCH ×2 (09:16→21:00)
[2018-10-16] MEDS: METOPROLOL SUCCINATE 25 MG TAB.ER.24H PO SCH (09:16)
[2018-10-16] MEDS: ASPIRIN 81 MG TABLET EC PO SCH (09:17)
[2018-10-16] MEDS: LEVOTHYROXINE 100 MCG TABLET PO SCH (09:17)
[2018-10-16] MEDS: POTASSIUM CHLORIDE 20 MEQ TAB.ER.PRT PO SCH ×3 (09:17→21:33)
[2018-10-16] MEDS: SODIUM CHLORIDE FLUSH 10ML SYR IVF SCH ×2 (09:18→21:34)
[2018-10-16] MEDS: METHYLPHENIDATE 10 MG TABLET PO SCH (11:16)
[2018-10-16 12:35] VITALS: BP 108/64
[2018-10-16] MEDS: ACETAMINOPHEN 325 MG TABLET PO PRN (13:56)
[2018-10-16] MEDS: CYCLOBENZAPRINE 10 MG TABLET PO PRN ×2 (17:03→21:34)
[2018-10-16 19:13] VITALS: BP 147/88
[2018-10-16] MEDS: LEVOMILNACIPRAN HYDROCHLORIDE 40 MG PO SCH (21:00)
[2018-10-16] MEDS: ROPINIROLE 1MG TABLET PO SCH (21:00)
[2018-10-16] MEDS: MIRTAZAPINE 15 MG TABLET PO SCH (21:33)
[2018-10-16] MEDS: SIMVASTATIN 20 MG TABLET PO SCH (21:34)
[2018-10-17 00:52] VITALS: BP 148/87
[2018-10-17] MEDS: methylPREDNISolone SOD SUCC 125 MG/2 ML IVPush SCH (03:37)
[2018-10-17] MEDS: LEVOTHYROXINE 100 MCG TABLET PO SCH (05:15)
[2018-10-17] MEDS: CYCLOBENZAPRINE 10 MG TABLET PO PRN (05:15)
[2018-10-17] MEDS: GUAIFENESIN 200 MG TABLET PO SCH ×2 (05:15→13:12)
[2018-10-17] MEDS: OXYcodone IR 5MG TABLET PO PRN ×2 (05:15→13:11)
[2018-10-17 06:44] LABS: ALBUMIN 3.1 g/dL (3.4-5.0); ANION GAP 6 mmol/L (5-15); CALCIUM 9.1 mg/dL (8.5-10.1); CHLORIDE 113 mmol/L (98-107)
[2018-10-17 06:47] LABS: ALANINE AMINOTRANSFERASE 34 U/L (12-78); ALKALINE PHOSPHATASE 85 U/L (45-117); BILIRUBIN,TOTAL 0.3 mg/dL (0.2-1.0); CREATININE 0.81 mg/dL (0.55-1.02); TOTAL PROTEIN 6.6 g/dL (6.4-8.2)
[2018-10-17 07:28] VITALS: BP 142/87
[2018-10-17] MEDS ORDERED: SODIUM POLYSTYRENE SULFONATE ORAL SUSP PO ONE (08:30)
[2018-10-17] MEDS: ASPIRIN 81 MG TABLET EC PO SCH (08:53)
[2018-10-17] MEDS: AMIODARONE 200 MG TABLET PO SCH (08:53)
[2018-10-17] MEDS: BISACODYL 5 MG EC TABLET PO SCH (08:53)
[2018-10-17] MEDS: ARIPIPRAZOLE 5 MG TABLET PO SCH (08:53)
[2018-10-17] MEDS: BUPROPION SR 150 MG TABLET PO SCH (08:56)
[2018-10-17] MEDS: SENNA/DOCUSATE TABLET PO SCH (08:57)
[2018-10-17] MEDS: SODIUM CHLORIDE FLUSH 10ML SYR IVF SCH (08:59)
[2018-10-17] MEDS: LINACLOTIDE 145 MCG HOMEMEDPO SCH (09:00)
[2018-10-17] MEDS: FLUTICASONE NASAL SPRAY 16GM NAS SCH (09:00)
[2018-10-17] MEDS: CLOBETASOL PROPIONATE CRM 0.05%, 15GM TP SCH (09:00)
[2018-10-17] MEDS: LISDEXAMFETAMINE DIMESYLATE 40 MG PO SCH (09:00)
[2018-10-17] MEDS: METOPROLOL SUCCINATE 25 MG TAB.ER.24H PO SCH (09:07)
[2018-10-17] MEDS: OMEPRAZOLE 20 MG CAPSULE.DR PO SCH (09:07)
[2018-10-17] MEDS: LUBIPROSTONE 24 MCG CAPSULE PO SCH (09:07)
[2018-10-17] MEDS: METHYLPHENIDATE 10 MG TABLET PO SCH (09:08)
[2018-10-17] MEDS: TICAGRELOR 90 MG TABLET PO SCH (09:08)
[2018-10-17] MEDS: ACETAMINOPHEN 325 MG TABLET PO PRN (09:37)
[2018-10-17 11:26] LABS: ANION GAP 8 mmol/L (5-15); CALCIUM 9.6 mg/dL (8.5-10.1); CHLORIDE 113 mmol/L (98-107); CREATININE 0.88 mg/dL (0.55-1.02)
[2018-10-17] MEDS ORDERED: PRED20TA PO (12:10)
[2018-10-17] MEDS ORDERED: TIOT18CA INH (12:10)
[2018-10-17] MEDS ORDERED: GUAI200T3 PO (12:10)
== END 2018-10-17 13:45 | disposition home or self-care (01) | DRG 189 ==
LOC: ED 22:33 → EDIP 23:12 → 4WST 10-15 00:42 → DCLOUNGE 10-17 13:35
PROVIDERS: ADMIT Family Medicine; ATTEND Family Medicine
DX: J96.21 Acute and chronic respiratory failure with hypoxia (principal); J44.1 Chronic obstructive pulmonary disease with (acute) exacerbation; N17.9 Acute kidney failure, unspecified; F32.9 Major depressive disorder, single episode, unspecified; E87.6 Hypokalemia; E87.5 Hyperkalemia; E78.5 Hyperlipidemia, unspecified; I25.10 Atherosclerotic heart disease of native coronary artery without angina pectoris; Z95.5 Presence of coronary angioplasty implant and graft; G25.81 Restless legs syndrome; F98.8 Other specified behavioral and emotional disorders with onset usually occurring in childhood and adolescence; E03.9 Hypothyroidism, unspecified; E83.52 Hypercalcemia; F17.200 Nicotine dependence, unspecified, uncomplicated; R91.1 Solitary pulmonary nodule; I10 Essential (primary) hypertension; Z66 Do not resuscitate; Z82.49 Family history of ischemic heart disease and other diseases of the circulatory system; Z90.710 Acquired absence of both cervix and uterus; Z99.81 Dependence on supplemental oxygen; Z88.2 Allergy status to sulfonamides; Z88.8 Allergy status to other drugs, medicaments and biological substances
CPT/HCPCS: 36415; 71275; 80048; 80053; 83735; 83880; 84484; 85025; 93005; 94640; 99285; G0378; J0456; J3480; J7620; Q9967; J2930; J7040; J7050; J7512

== ENCOUNTER → 2019-07-18 | Outpatient (CLI) | payer MEDICARE ==
[~2019-07-18] MED LIST changes: -ALBU6.7H INH; +ALBU6.7H8 INH; +FURO20TA3 PO; +GUAI200T37 PO; +LEVO112T4 PO; +LIOT25TA12 PO; +LIOT5TAB11 PO; -LIOT5TAB3 PO; +MORP-30 PO; -MORP30TA3 PO; +PRED20TA PO; +REGADENOSON 0.4 MG/5 ML SYRINGE ONE; +TIOT4MIS3 INH; +ZOLP5TAB6 PO; +budesonide PO; +dexamethasone PO; +hydrocortisone PO; +potassium chloride PO
== END | disposition home or self-care (01) ==
LOC: CFH 06:48
PROVIDERS: ATTEND Physician Assistant Medical
DX: I48.91 Unspecified atrial fibrillation (principal); R07.9 Chest pain, unspecified
CPT/HCPCS: 78452; 93017; 93306; A9502; J2785

== ENCOUNTER 2019-09-06 14:54 | Inpatient (IN) | payer MEDICARE ==
[~2019-09-06] VITALS: Ht 165.1 cm; Wt 66.1 kg
[~2019-09-06 14:54] MED LIST changes: -REGADENOSON 0.4 MG/5 ML SYRINGE ONE; -ROPI1TAB2 PO; +ROPI1TAB4 PO; +SIMV20TA19 PO; -SIMV20TA3 PO; -TRAZ-137 PO; +TRAZ-175 PO
--- NOTE | 2019-09-06 14:59 | NUR ---
PT TO ROOM 38 PER PEDIS. PT C/O CHEST PAIN AND INCREASED SOB. PT HAS HISTORY OF LUNG MASSES CAUSING SOB AND NEED FOR OXYGEN. ASSESSMENT PERFORMED. MD IN TO DISCUSS POC AT BEDSIDE.
[2019-09-06] MEDS ORDERED: SODIUM CHLORIDE FLUSH 10ML SYR IVF ONE (15:30)
[2019-09-06 15:43] LABS: MEAN CORPUSCULAR HEMOGLOBIN 29.9 pg (27.0-34.8); MEAN CORPUSCULAR HGB CONC 33.2 g/dL (32.4-35.8); MEAN CORPUSCULAR VOLUME 90.1 fL (80-100); MEAN PLATELET VOLUME 10.3 fL (7.4-10.4); PLATELET COUNT 146 x10^3/uL (130-400); RED CELL DISTRIBUTION WIDTH 15.8 % (9.6-15.2)
[2019-09-06 15:52] LABS: ALBUMIN 2.6 g/dL (3.4-5.0); ANION GAP 6 mmol/L (5-15); CALCIUM 9.1 mg/dL (8.5-10.1); CHLORIDE 102 mmol/L (98-107)
--- NOTE | 2019-09-06 15:55 | NUR ---
PT TO XRAY PER CART.
[2019-09-06 15:57] LABS: ALANINE AMINOTRANSFERASE 35 U/L (12-78); ALKALINE PHOSPHATASE 97 U/L (45-117); BILIRUBIN,TOTAL 0.8 mg/dL (0.2-1.0); CREATININE 0.88 mg/dL (0.55-1.02); TOTAL PROTEIN 7.2 g/dL (6.4-8.2); TROPONIN I < 0.015 ng/mL (0.000-0.045)
--- NOTE | 2019-09-06 16:30 | NUR ---
PATIENT RESTING ON CART. VITALS WNL. IV STARTED.
[2019-09-06] MEDS ORDERED: CEFTRIAXONE PMX 1GM/50ML 50 ML IVPB ONE (17:00)
[2019-09-06] MEDS ORDERED: MORPHINE SULFATE 4 MG/ML, 1ML IVPush PRN (17:00)
[2019-09-06] MEDS ORDERED: ACETAMINOPHEN 325 MG TABLET PO PRN (17:00)
[2019-09-06] MEDS ORDERED: morphine SULFATE 10 MG/ML, 1ML IVPush PRN (17:00)
[2019-09-06] MEDS ORDERED: ZOLPIDEM 5MG TABLET PO PRN (17:00)
[2019-09-06] MEDS ORDERED: ONDANSETRON 2MG/ML, 2ML IVPush ONE (17:00)
[2019-09-06 17:04] LABS: BASOPHILS % (AUTO) 0 % (0-1); EOSINOPHILS # (AUTO) 0.01 x10^3/uL (0-0.4); EOSINOPHILS % (AUTO) 0 % (1-7); LYMPHOCYTES % (AUTO) 5 % (22-44); MD SCAN; MONOCYTES # (AUTO) 1.43 x10^3/uL (0.2-0.8); MONOCYTES % (AUTO) 7 % (2-9); NEUTROPHILS # (AUTO) 17.39 x10^3/uL (1.8-6.8); NEUTROPHILS % (AUTO) 88 % (42-75)
[2019-09-06] MEDS ORDERED: CEFTRIAXONE PMX 2GM/50ML 50 ML ONE (17:13)
[2019-09-06] MEDS ORDERED: AZITHROMYCIN 500 MG TABLET ONE (17:15)
[2019-09-06] MEDS ORDERED: AZITHROMYCIN 500 MG TABLET PO ONE (17:15)
[2019-09-06] MEDS ORDERED: ONDANSETRON 2MG/ML, 2ML ONE (17:15)
[2019-09-06] MEDS ORDERED: MORPHINE SULFATE 4 MG/ML, 1ML ONE (17:16)
[2019-09-06] MEDS ORDERED: ALBUTEROL SULFATE 2.5 MG/3 ML ONE (17:20)
[2019-09-06] MEDS: SODIUM CHLORIDE 0.9% 1,000 ML IV SCH ×2 (17:22→22:42)
[2019-09-06] MEDS: CEFTRIAXONE PMX 2GM/50ML 50 ML IV SCH (17:22)
--- NOTE | 2019-09-06 17:26 | NUR ---
TASK RN: IVF STARTED AND IV ABX STARTED AFTER BLOOD CULTURES DRAWN. PT MEDICATED PER MAR, PT RESTING IN RMENTONE, AWAITING BED ASSIGNMENT. AND RT AT BEDSIDE.
[2019-09-06] MEDS ORDERED: ALBUTEROL SULFATE 2.5 MG/3 ML NPPB PRN (18:00)
--- NOTE | 2019-09-06 18:50 | NUR ---
REPORT TO AB BOWLES. PT INFORMS RN THAT MORPHINE HAS HELPED WITH HER PAIN.
[2019-09-06 19:34] VITALS: BP 113/71
[2019-09-06] MEDS: ALBUTEROL SULFATE 2.5 MG/3 ML NPPB SCH (20:00)
[2019-09-06] MEDS: TICAGRELOR 90 MG TABLET PO SCH (20:49)
[2019-09-06] MEDS: ROPINIROLE 1MG TABLET PO SCH (21:09)
[2019-09-06] MEDS: CYCLOBENZAPRINE 10 MG TABLET PO SCH (21:09)
[2019-09-06] MEDS: LACTULOSE 10 GM/15 ML UDC PO SCH (21:09)
[2019-09-06] MEDS: MIRTAZAPINE 30 MG TABLET PO SCH (21:09)
[2019-09-06] MEDS: SIMVASTATIN 20 MG TABLET PO SCH (21:10)
[2019-09-06] MEDS: HYDROcodone/APAP 5/325 TABLET PO PRN ×2 (21:10→22:42)
[2019-09-06] MEDS: AMIODARONE 200 MG TABLET PO SCH (21:10)
[2019-09-06] MEDS: BUPROPION SR 150 MG TABLET PO SCH (21:10)
[2019-09-06] MEDS: DOXYCYCLINE 100MG TABLET PO SCH (21:10)
[2019-09-07 02:22] VITALS: BP 111/72
[2019-09-07] MEDS: HYDROcodone/APAP 5/325 TABLET PO PRN ×3 (03:38→11:39)
[2019-09-07 04:41] LABS: ANION GAP 5 mmol/L (5-15); CALCIUM 8.6 mg/dL (8.5-10.1); CHLORIDE 108 mmol/L (98-107); CREATININE 0.79 mg/dL (0.55-1.02)
[2019-09-07 05:44] LABS: BASOPHILS % (AUTO) 0 % (0-1); EOSINOPHILS # (AUTO) 0.06 x10^3/uL (0-0.4); EOSINOPHILS % (AUTO) 0 % (1-7); LYMPHOCYTES # (AUTO) 1.24 x10^3/uL (1-3.4); LYMPHOCYTES % (AUTO) 7 % (22-44); MD SCAN; MEAN CORPUSCULAR HEMOGLOBIN 30.1 pg (27.0-34.8); MEAN CORPUSCULAR VOLUME 91.1 fL (80-100); MEAN PLATELET VOLUME 9.5 fL (7.4-10.4); MONOCYTES # (AUTO) 1.26 x10^3/uL (0.2-0.8); MONOCYTES % (AUTO) 8 % (2-9); NEUTROPHILS # (AUTO) 14.17 x10^3/uL (1.8-6.8); NEUTROPHILS % (AUTO) 85 % (42-75); PLATELET COUNT 130 x10^3/uL (130-400); RED BLOOD COUNT 4.27 x10^6/uL (3.82-5.3); RED CELL DISTRIBUTION WIDTH 15.9 % (9.6-15.2)
[2019-09-07] MEDS: LEVOTHYROXINE 112 MCG TABLET PO SCH (06:03)
[2019-09-07] MEDS: LIOTHYRONINE 25 MCG TABLET PO SCH (06:04)
[2019-09-07] MEDS: PANTOPROZOLE 40MG TABLET PO SCH (07:27)
[2019-09-07] MEDS: ALBUTEROL SULFATE 2.5 MG/3 ML NPPB SCH ×4 (08:00→18:50)
[2019-09-07] MEDS: LACTULOSE 10 GM/15 ML UDC PO SCH ×2 (09:00→20:29)
[2019-09-07 09:10] VITALS: BP 97/63
[2019-09-07] MEDS: ASPIRIN 81 MG TABLET EC PO SCH (09:34)
[2019-09-07] MEDS: AMIODARONE 200 MG TABLET PO SCH ×2 (09:34→20:27)
[2019-09-07] MEDS: TICAGRELOR 90 MG TABLET PO SCH ×2 (09:34→20:27)
[2019-09-07] MEDS: CYCLOBENZAPRINE 10 MG TABLET PO SCH ×3 (09:35→20:27)
[2019-09-07] MEDS: BUPROPION SR 150 MG TABLET PO SCH ×2 (09:35→20:27)
[2019-09-07] MEDS: DOXYCYCLINE 100MG TABLET PO SCH ×2 (09:35→20:27)
[2019-09-07] MEDS: METOPROLOL SUCCINATE 25 MG TAB.ER.24H PO SCH (09:35)
[2019-09-07] MEDS: ARIPIPRAZOLE 5 MG TABLET PO SCH (09:36)
[2019-09-07] MEDS: LUBIPROSTONE 24 MCG CAPSULE PO SCH (09:36)
[2019-09-07] MEDS: BUDESONIDE 0.5 MG/2 ML INHA NPPB SCH ×2 (11:30→18:50)
[2019-09-07 12:12] VITALS: BP 98/63
[2019-09-07] MEDS: SODIUM CHLORIDE 0.9% 1,000 ML IV SCH ×2 (14:02→21:39)
[2019-09-07] MEDS: OXYcodone IR 5MG TABLET PO PRN ×3 (14:58→21:39)
[2019-09-07] MEDS: CEFTRIAXONE PMX 2GM/50ML 50 ML IV SCH (17:09)
[2019-09-07 19:25] VITALS: BP 116/75
[2019-09-07] MEDS: SIMVASTATIN 20 MG TABLET PO SCH (20:27)
[2019-09-07] MEDS: MIRTAZAPINE 30 MG TABLET PO SCH (20:27)
[2019-09-07] MEDS: ROPINIROLE 1MG TABLET PO SCH (20:27)
[2019-09-08 01:27] VITALS: BP 120/77
[2019-09-08 04:49] LABS: MEAN CORPUSCULAR HEMOGLOBIN 29.8 pg (27.0-34.8); MEAN CORPUSCULAR HGB CONC 32.9 g/dL (32.4-35.8); MEAN CORPUSCULAR VOLUME 90.5 fL (80-100); MEAN PLATELET VOLUME 10.5 fL (7.4-10.4); PLATELET COUNT 147 x10^3/uL (130-400); RED BLOOD COUNT 4.11 x10^6/uL (3.82-5.3); RED CELL DISTRIBUTION WIDTH 15.7 % (9.6-15.2)
[2019-09-08 04:57] LABS: ANION GAP 8 mmol/L (5-15); CALCIUM 8.2 mg/dL (8.5-10.1); CHLORIDE 108 mmol/L (98-107); CREATININE 0.64 mg/dL (0.55-1.02)
[2019-09-08] MEDS: LEVOTHYROXINE 112 MCG TABLET PO SCH (05:22)
[2019-09-08] MEDS: OXYcodone IR 5MG TABLET PO PRN ×5 (05:22→21:03)
[2019-09-08] MEDS: LIOTHYRONINE 25 MCG TABLET PO SCH (05:22)
[2019-09-08] MEDS: SODIUM CHLORIDE 0.9% 1,000 ML IV SCH (05:22)
[2019-09-08 05:46] LABS: BASOPHILS # (AUTO) 0.01 x10^3/uL (0-0.1); BASOPHILS % (AUTO) 0 % (0-1); EOSINOPHILS # (AUTO) 0.03 x10^3/uL (0-0.4); EOSINOPHILS % (AUTO) 0 % (1-7); LYMPHOCYTES # (AUTO) 0.75 x10^3/uL (1-3.4); LYMPHOCYTES % (AUTO) 6 % (22-44); MD SCAN; MONOCYTES # (AUTO) 0.95 x10^3/uL (0.2-0.8); MONOCYTES % (AUTO) 8 % (2-9); NEUTROPHILS % (AUTO) 86 % (42-75)
[2019-09-08] MEDS: BUDESONIDE 0.5 MG/2 ML INHA NPPB SCH ×2 (06:45→19:30)
[2019-09-08] MEDS: ALBUTEROL SULFATE 2.5 MG/3 ML NPPB SCH ×4 (06:45→19:30)
[2019-09-08 07:53] VITALS: BP 113/79
[2019-09-08] MEDS: LUBIPROSTONE 24 MCG CAPSULE PO SCH (07:59)
[2019-09-08] MEDS: LACTULOSE 10 GM/15 ML UDC PO SCH ×2 (07:59→21:00)
[2019-09-08] MEDS: METOPROLOL SUCCINATE 25 MG TAB.ER.24H PO SCH (07:59)
[2019-09-08] MEDS: PANTOPROZOLE 40MG TABLET PO SCH (07:59)
[2019-09-08] MEDS: BUPROPION SR 150 MG TABLET PO SCH ×2 (08:00→20:07)
[2019-09-08] MEDS: DOXYCYCLINE 100MG TABLET PO SCH ×2 (08:00→20:08)
[2019-09-08] MEDS: TICAGRELOR 90 MG TABLET PO SCH (08:00)
[2019-09-08] MEDS: ARIPIPRAZOLE 5 MG TABLET PO SCH (08:00)
[2019-09-08] MEDS: CYCLOBENZAPRINE 10 MG TABLET PO SCH ×3 (08:00→21:01)
[2019-09-08] MEDS: AMIODARONE 200 MG TABLET PO SCH ×2 (08:00→20:08)
[2019-09-08] MEDS: ASPIRIN 81 MG TABLET EC PO SCH (08:00)
[2019-09-08] MEDS: GUAIFENESIN ER 600 MG TABLET PO SCH ×2 (11:14→20:07)
[2019-09-08 14:07] VITALS: BP 121/81
[2019-09-08] MEDS: CEFTRIAXONE PMX 2GM/50ML 50 ML IV SCH (16:45)
[2019-09-08 19:34] VITALS: BP 127/75
[2019-09-08] MEDS: SIMVASTATIN 20 MG TABLET PO SCH (20:07)
[2019-09-08] MEDS: ROPINIROLE 1MG TABLET PO SCH (20:07)
[2019-09-08] MEDS: MIRTAZAPINE 30 MG TABLET PO SCH (21:01)
[2019-09-09] MEDS: OXYcodone IR 5MG TABLET PO PRN ×4 (02:14→19:47)
[2019-09-09 02:30] VITALS: BP 106/68
[2019-09-09 05:20] LABS: MEAN CORPUSCULAR HEMOGLOBIN 29.9 pg (27.0-34.8); MEAN CORPUSCULAR HGB CONC 33.3 g/dL (32.4-35.8); MEAN CORPUSCULAR VOLUME 89.7 fL (80-100); MEAN PLATELET VOLUME 9.7 fL (7.4-10.4); PLATELET COUNT 169 x10^3/uL (130-400); RED BLOOD COUNT 3.75 x10^6/uL (3.82-5.3); RED CELL DISTRIBUTION WIDTH 16.1 % (9.6-15.2)
[2019-09-09 05:24] LABS: ANION GAP 10 mmol/L (5-15); CALCIUM 8.6 mg/dL (8.5-10.1); CHLORIDE 107 mmol/L (98-107)
[2019-09-09 05:25] LABS: CREATININE 0.55 mg/dL (0.55-1.02)
[2019-09-09 05:45] LABS: BASOPHILS # (AUTO) 0.01 x10^3/uL (0-0.1); BASOPHILS % (AUTO) 0 % (0-1); EOSINOPHILS # (AUTO) 0.12 x10^3/uL (0-0.4); EOSINOPHILS % (AUTO) 1 % (1-7); LYMPHOCYTES # (AUTO) 1.26 x10^3/uL (1-3.4); LYMPHOCYTES % (AUTO) 8 % (22-44); MD SCAN; MONOCYTES # (AUTO) 1.15 x10^3/uL (0.2-0.8); MONOCYTES % (AUTO) 7 % (2-9); NEUTROPHILS # (AUTO) 12.94 x10^3/uL (1.8-6.8); NEUTROPHILS % (AUTO) 84 % (42-75)
[2019-09-09] MEDS: LEVOTHYROXINE 112 MCG TABLET PO SCH (05:45)
[2019-09-09] MEDS: LIOTHYRONINE 25 MCG TABLET PO SCH (05:45)
[2019-09-09] MEDS ORDERED: POTASSIUM CHLORIDE 40 MEQ in SODIUM CHLORIDE 0.9% 500 ML IV ONE (07:00)
[2019-09-09] MEDS: PANTOPROZOLE 40MG TABLET PO SCH (07:12)
[2019-09-09] MEDS: ALBUTEROL SULFATE 2.5 MG/3 ML NPPB SCH ×4 (07:30→20:02)
[2019-09-09 07:33] VITALS: BP 117/68
[2019-09-09] MEDS: BUDESONIDE 0.5 MG/2 ML INHA NPPB SCH ×2 (07:33→20:02)
[2019-09-09] MEDS: POTASSIUM CHLORIDE 20 MEQ TAB.ER.PRT PO SCH ×2 (08:02→17:17)
[2019-09-09] MEDS: LACTULOSE 10 GM/15 ML UDC PO SCH ×2 (09:00→21:00)
[2019-09-09] MEDS: ARIPIPRAZOLE 5 MG TABLET PO SCH (09:56)
[2019-09-09] MEDS: ASPIRIN 81 MG TABLET EC PO SCH (09:57)
[2019-09-09] MEDS: CYCLOBENZAPRINE 10 MG TABLET PO SCH ×3 (09:57→21:59)
[2019-09-09] MEDS: LUBIPROSTONE 24 MCG CAPSULE PO SCH (09:57)
[2019-09-09] MEDS: AMIODARONE 200 MG TABLET PO SCH ×2 (09:57→21:59)
[2019-09-09] MEDS: GUAIFENESIN ER 600 MG TABLET PO SCH ×2 (09:57→22:00)
[2019-09-09] MEDS: BUPROPION SR 150 MG TABLET PO SCH ×2 (09:58→22:00)
[2019-09-09] MEDS: DOXYCYCLINE 100MG TABLET PO SCH ×2 (09:58→21:59)
[2019-09-09] MEDS: METOPROLOL SUCCINATE 25 MG TAB.ER.24H PO SCH (09:58)
[2019-09-09 13:09] VITALS: BP 121/81
[2019-09-09] MEDS: CEFAZOLIN PMX 1GM/50ML 50 ML IV SCH ×2 (13:28→19:48)
[2019-09-09] MEDS ORDERED: MAGNESIUM SULFATE PMX 2GM/50ML 50 ML IV ONE (15:30)
[2019-09-09] MEDS: MAGNESIUM OXIDE 400 MG TABLET PO SCH ×2 (17:17→21:59)
[2019-09-09 19:03] VITALS: BP 121/77
[2019-09-09] MEDS: SIMVASTATIN 20 MG TABLET PO SCH (21:59)
[2019-09-09] MEDS: ROPINIROLE 1MG TABLET PO SCH (21:59)
[2019-09-09] MEDS: MIRTAZAPINE 30 MG TABLET PO SCH (21:59)
[2019-09-10] MEDS: OXYcodone IR 5MG TABLET PO PRN ×5 (01:10→21:47)
[2019-09-10 01:40] VITALS: BP 110/70
[2019-09-10] MEDS: CEFAZOLIN PMX 1GM/50ML 50 ML IV SCH ×3 (03:33→20:25)
[2019-09-10 05:11] LABS: BASOPHILS % (AUTO) 0 % (0-1); EOSINOPHILS # (AUTO) 0.12 x10^3/uL (0-0.4); EOSINOPHILS % (AUTO) 1 % (1-7); LYMPHOCYTES # (AUTO) 1.29 x10^3/uL (1-3.4); LYMPHOCYTES % (AUTO) 12 % (22-44); MD NO; MEAN CORPUSCULAR HEMOGLOBIN 29.8 pg (27.0-34.8); MEAN CORPUSCULAR HGB CONC 32.2 g/dL (32.4-35.8); MEAN CORPUSCULAR VOLUME 92.3 fL (80-100); MEAN PLATELET VOLUME 9.1 fL (7.4-10.4); MONOCYTES # (AUTO) 0.68 x10^3/uL (0.2-0.8); MONOCYTES % (AUTO) 6 % (2-9); NEUTROPHILS # (AUTO) 8.77 x10^3/uL (1.8-6.8); NEUTROPHILS % (AUTO) 81 % (42-75); PLATELET COUNT 210 x10^3/uL (130-400); RED BLOOD COUNT 3.81 x10^6/uL (3.82-5.3); RED CELL DISTRIBUTION WIDTH 16.5 % (9.6-15.2)
[2019-09-10 05:20] LABS: ANION GAP 5 mmol/L (5-15); CALCIUM 8.7 mg/dL (8.5-10.1); CHLORIDE 111 mmol/L (98-107); CREATININE 0.68 mg/dL (0.55-1.02)
[2019-09-10] MEDS: PANTOPROZOLE 40MG TABLET PO SCH (06:22)
[2019-09-10] MEDS: LIOTHYRONINE 25 MCG TABLET PO SCH (06:22)
[2019-09-10] MEDS: LEVOTHYROXINE 112 MCG TABLET PO SCH (06:22)
[2019-09-10 06:56] VITALS: BP 113/73
[2019-09-10] MEDS: BUDESONIDE 0.5 MG/2 ML INHA NPPB SCH ×2 (07:40→20:37)
[2019-09-10] MEDS: ALBUTEROL SULFATE 2.5 MG/3 ML NPPB SCH ×4 (07:40→20:00)
[2019-09-10] MEDS: ASPIRIN 81 MG TABLET EC PO SCH (08:31)
[2019-09-10] MEDS: LUBIPROSTONE 24 MCG CAPSULE PO SCH (08:31)
[2019-09-10] MEDS: ARIPIPRAZOLE 5 MG TABLET PO SCH (08:31)
[2019-09-10] MEDS: CYCLOBENZAPRINE 10 MG TABLET PO SCH ×3 (08:32→20:27)
[2019-09-10] MEDS: AMIODARONE 200 MG TABLET PO SCH ×2 (08:32→20:26)
[2019-09-10] MEDS: GUAIFENESIN ER 600 MG TABLET PO SCH ×2 (08:32→20:26)
[2019-09-10] MEDS: METOPROLOL SUCCINATE 25 MG TAB.ER.24H PO SCH (08:32)
[2019-09-10] MEDS: LACTULOSE 10 GM/15 ML UDC PO SCH ×2 (08:32→20:27)
[2019-09-10] MEDS: DOXYCYCLINE 100MG TABLET PO SCH ×2 (08:32→20:27)
[2019-09-10] MEDS: POTASSIUM CHLORIDE 20 MEQ TAB.ER.PRT PO SCH ×2 (08:32→17:21)
[2019-09-10] MEDS: MAGNESIUM OXIDE 400 MG TABLET PO SCH ×2 (08:32→20:26)
[2019-09-10] MEDS: BUPROPION SR 150 MG TABLET PO SCH ×2 (08:32→20:26)
[2019-09-10 14:26] VITALS: BP 112/71
[2019-09-10 19:11] VITALS: BP 106/67
[2019-09-10] MEDS: MIRTAZAPINE 30 MG TABLET PO SCH (20:26)
[2019-09-10] MEDS: SIMVASTATIN 20 MG TABLET PO SCH (20:26)
[2019-09-10] MEDS: ROPINIROLE 1MG TABLET PO SCH (20:26)
[2019-09-11 01:24] VITALS: BP 124/78
[2019-09-11] MEDS: OXYcodone IR 5MG TABLET PO PRN ×3 (02:34→13:16)
[2019-09-11] MEDS: CEFAZOLIN PMX 1GM/50ML 50 ML IV SCH ×2 (04:04→12:00)
[2019-09-11 04:53] LABS: BASOPHILS # (AUTO) 0.01 x10^3/uL (0-0.1); BASOPHILS % (AUTO) 0 % (0-1); EOSINOPHILS # (AUTO) 0.15 x10^3/uL (0-0.4); EOSINOPHILS % (AUTO) 2 % (1-7); LYMPHOCYTES # (AUTO) 1.16 x10^3/uL (1-3.4); LYMPHOCYTES % (AUTO) 14 % (22-44); MD NO; MEAN CORPUSCULAR HEMOGLOBIN 29.3 pg (27.0-34.8); MEAN CORPUSCULAR HGB CONC 32.3 g/dL (32.4-35.8); MEAN CORPUSCULAR VOLUME 90.8 fL (80-100); MEAN PLATELET VOLUME 8.9 fL (7.4-10.4); MONOCYTES # (AUTO) 0.71 x10^3/uL (0.2-0.8); MONOCYTES % (AUTO) 8 % (2-9); NEUTROPHILS # (AUTO) 6.55 x10^3/uL (1.8-6.8); NEUTROPHILS % (AUTO) 76 % (42-75); PLATELET COUNT 227 x10^3/uL (130-400); RED BLOOD COUNT 3.45 x10^6/uL (3.82-5.3); RED CELL DISTRIBUTION WIDTH 16.6 % (9.6-15.2)
[2019-09-11 04:55] LABS: ANION GAP 5 mmol/L (5-15); CALCIUM 8.6 mg/dL (8.5-10.1); CHLORIDE 111 mmol/L (98-107); CREATININE 0.55 mg/dL (0.55-1.02)
[2019-09-11] MEDS: LEVOTHYROXINE 112 MCG TABLET PO SCH (05:40)
[2019-09-11] MEDS: LIOTHYRONINE 25 MCG TABLET PO SCH (05:40)
[2019-09-11] MEDS: ALBUTEROL SULFATE 2.5 MG/3 ML NPPB SCH ×2 (07:00→10:42)
[2019-09-11] MEDS: BUDESONIDE 0.5 MG/2 ML INHA NPPB SCH (07:23)
[2019-09-11 07:44] VITALS: BP 123/72
[2019-09-11] MEDS: LACTULOSE 10 GM/15 ML UDC PO SCH (08:00)
[2019-09-11] MEDS: LUBIPROSTONE 24 MCG CAPSULE PO SCH (08:01)
[2019-09-11] MEDS: METOPROLOL SUCCINATE 25 MG TAB.ER.24H PO SCH (08:01)
[2019-09-11] MEDS: AMIODARONE 200 MG TABLET PO SCH (08:01)
[2019-09-11] MEDS: POTASSIUM CHLORIDE 20 MEQ TAB.ER.PRT PO SCH (08:01)
[2019-09-11] MEDS: PANTOPROZOLE 40MG TABLET PO SCH (08:02)
[2019-09-11] MEDS: CYCLOBENZAPRINE 10 MG TABLET PO SCH (08:02)
[2019-09-11] MEDS: GUAIFENESIN ER 600 MG TABLET PO SCH (08:02)
[2019-09-11] MEDS: ARIPIPRAZOLE 5 MG TABLET PO SCH (08:02)
[2019-09-11] MEDS: BUPROPION SR 150 MG TABLET PO SCH (08:02)
[2019-09-11] MEDS: MAGNESIUM OXIDE 400 MG TABLET PO SCH (08:02)
[2019-09-11] MEDS: ASPIRIN 81 MG TABLET EC PO SCH (08:02)
[2019-09-11] MEDS ORDERED: CEPH-376 PO (10:56)
[2019-09-11] MEDS ORDERED: GUAI600T31 PO (10:56)
[2019-09-11 13:34] VITALS: BP 127/67
== END 2019-09-11 15:10 | disposition home or self-care (01) | DRG 871 ==
LOC: ED 17:05 → EDIP 17:26 → 4NW 19:31 → DCLOUNGE 09-11 15:07
PROVIDERS: ADMIT Internal Medicine Infectious Disease; ATTEND Family Medicine
DX: A41.9 Sepsis, unspecified organism (principal); J15.211 Pneumonia due to Methicillin susceptible Staphylococcus aureus; J90 Pleural effusion, not elsewhere classified; J96.11 Chronic respiratory failure with hypoxia; E03.9 Hypothyroidism, unspecified; E87.6 Hypokalemia; G25.81 Restless legs syndrome; G89.29 Other chronic pain; I10 Essential (primary) hypertension; I25.10 Atherosclerotic heart disease of native coronary artery without angina pectoris; I48.91 Unspecified atrial fibrillation; Z88.2 Allergy status to sulfonamides; Z88.8 Allergy status to other drugs, medicaments and biological substances; Z66 Do not resuscitate; Z79.82 Long term (current) use of aspirin; Z79.891 Long term (current) use of opiate analgesic; Z79.899 Other long term (current) drug therapy; Z82.49 Family history of ischemic heart disease and other diseases of the circulatory system; Z87.891 Personal history of nicotine dependence; Z90.710 Acquired absence of both cervix and uterus; Z95.5 Presence of coronary angioplasty implant and graft; J44.9 Chronic obstructive pulmonary disease, unspecified
CPT/HCPCS: 36415; 71046; 80048; 80053; 83605; 83735; 83880; 84145; 84484; 85025; 86738; 87040; 87070; 87077; 87147; 87186; 87205; 87449; 93005; 94640; 96374; 96375; G0378; J0690; J0696; J2405; J3480; J7613; J7626; J2270; J3475; J7030; J7040

== ENCOUNTER → 2019-12-19 | Outpatient (CLI) | payer MEDICARE ==
[~2019-12-19] MED LIST changes: +CEPH-376 PO; +GUAI600T31 PO; -OXYC15TA PO; +OXYC15TA3 PO
== END | disposition home or self-care (01) ==
LOC: CFH 08:06
PROVIDERS: ATTEND Physician Assistant Medical
DX: R91.8 Other nonspecific abnormal finding of lung field (principal); J18.9 Pneumonia, unspecified organism; E03.9 Hypothyroidism, unspecified; E78.5 Hyperlipidemia, unspecified; E87.6 Hypokalemia; G47.33 Obstructive sleep apnea (adult) (pediatric); I48.91 Unspecified atrial fibrillation; I21.4 Non-ST elevation (NSTEMI) myocardial infarction; I95.9 Hypotension, unspecified; J44.9 Chronic obstructive pulmonary disease, unspecified; J96.11 Chronic respiratory failure with hypoxia; K21.9 Gastro-esophageal reflux disease without esophagitis; M54.9 Dorsalgia, unspecified; N28.9 Disorder of kidney and ureter, unspecified; R07.9 Chest pain, unspecified; F32.9 Major depressive disorder, single episode, unspecified; F41.9 Anxiety disorder, unspecified; Z98.61 Coronary angioplasty status
CPT/HCPCS: 71046

== ENCOUNTER → 2020-02-06 | Outpatient (CLI) | payer MEDICARE ==
[~2020-02-06] MED LIST changes: +BUDE10.22 INH; +VILA40TA PO
== END | disposition home or self-care (01) ==
LOC: CFH 09:14
PROVIDERS: ATTEND Internal Medicine Geriatric Medicine
DX: Z13.820 Encounter for screening for osteoporosis (principal); M85.80 Other specified disorders of bone density and structure, unspecified site; N95.9 Unspecified menopausal and perimenopausal disorder
CPT/HCPCS: 77080

== ENCOUNTER → 2020-02-06 | Outpatient (CLI) | payer MEDICARE ==
[2020-02-06 11:07] LABS: BASOPHILS # (AUTO) 0.04 x10^3/uL (0-0.1); BASOPHILS % (AUTO) 1 % (0-1); EOSINOPHILS # (AUTO) 0.05 x10^3/uL (0-0.4); EOSINOPHILS % (AUTO) 1 % (1-7); LYMPHOCYTES # (AUTO) 1.52 x10^3/uL (1-3.4); LYMPHOCYTES % (AUTO) 17 % (22-44); MD NO; MEAN CORPUSCULAR HEMOGLOBIN 29.1 pg (27.0-34.8); MEAN CORPUSCULAR HGB CONC 31.5 g/dL (32.4-35.8); MEAN CORPUSCULAR VOLUME 92.4 fL (80-100); MEAN PLATELET VOLUME 11.6 fL (7.4-10.4); MONOCYTES # (AUTO) 0.65 x10^3/uL (0.2-0.8); MONOCYTES % (AUTO) 7 % (2-9); NEUTROPHILS # (AUTO) 6.74 x10^3/uL (1.8-6.8); NEUTROPHILS % (AUTO) 75 % (42-75); PLATELET COUNT 135 x10^3/uL (130-400); RED BLOOD COUNT 4.97 x10^6/uL (3.82-5.3); RED CELL DISTRIBUTION WIDTH 15.6 % (9.6-15.2)
[2020-02-06 11:19] LABS: ALBUMIN 3.5 g/dL (3.4-5.0); ANION GAP 4 mmol/L (5-15); CALCIUM 9.8 mg/dL (8.5-10.1); CHLORIDE 111 mmol/L (98-107)
[2020-02-06 11:24] LABS: ALANINE AMINOTRANSFERASE 45 U/L (12-78); ALKALINE PHOSPHATASE 115 U/L (45-117); BILIRUBIN,TOTAL 0.3 mg/dL (0.2-1.0); CREATININE 0.81 mg/dL (0.55-1.02); TOTAL PROTEIN 7.3 g/dL (6.4-8.2)
== END | disposition home or self-care (01) ==
LOC: STAR 09:58
PROVIDERS: ATTEND Surgery
DX: Z01.818 Encounter for other preprocedural examination (principal); D38.1 Neoplasm of uncertain behavior of trachea, bronchus and lung; J98.4 Other disorders of lung; I51.7 Cardiomegaly
CPT/HCPCS: 36415; 80053; 85025; 93005

== ENCOUNTER → 2020-07-12 | Outpatient (CLI) | payer MEDICARE ==
[~2020-07-12] MED LIST changes: +HYDR-3240 PO; +OXYC10TA72 PO; -PANT40TA5 PO; +PANT40TA6 PO; +REGADENOSON 0.4 MG/5 ML SYRINGE ONE
== END | disposition home or self-care (01) ==
LOC: CFH 06:45
PROVIDERS: ATTEND Registered Nurse
DX: I08.8 Other rheumatic multiple valve diseases (principal); I21.29 ST elevation (STEMI) myocardial infarction involving other sites; I25.9 Chronic ischemic heart disease, unspecified; I21.9 Acute myocardial infarction, unspecified; I48.91 Unspecified atrial fibrillation; R07.9 Chest pain, unspecified
CPT/HCPCS: 78452; 93017; 93306; A9502; J2785

== ENCOUNTER 2020-10-10 14:01 | Emergency (ER) | payer MEDICARE ==
[~2020-10-10] VITALS: Ht 165.1 cm; Wt 63.5 kg
[~2020-10-10 14:01] MED LIST changes: -CYCL-259 PO; +CYCL10TA2 PO; +HYDR-1067 PO; -HYDR-3240 PO; -HYDR-3245 PO; +HYDR1TAB53 PO; -LISI40TA PO; +LISI40TA9 PO; -REGADENOSON 0.4 MG/5 ML SYRINGE ONE
--- NOTE | 2020-10-10 14:18 | NUR ---
PT BROUGHT BACK WITH CHIEF COMPLAINT OF NECK/JAW INFECTION. SEEN AT DIRECTOR OF CATEGORY MANAGEMENT LUCIA, STARTED ABX HOWEVER INFECTION WORSENING.
--- NOTE | 2020-10-10 14:21 | NUR ---
MAGALIE LANG AT BEDSIDE FOR EVALUATION
[2020-10-10] MEDS ORDERED: SODIUM CHLORIDE FLUSH 10ML SYR IVF ONE (14:30)
[2020-10-10] MEDS ORDERED: NEOSPORIN OINT. PKT 1 PACKET ONE ×2 (14:54→14:56)
[2020-10-10] MEDS ORDERED: IBUPROFEN 200 MG TABLET ONE (14:54)
[2020-10-10 15:05] LABS: BASOPHILS % (AUTO) 0 % (0-1); EOSINOPHILS % (AUTO) 0 % (1-7); LYMPHOCYTES % (AUTO) 8 % (22-44); MEAN CORPUSCULAR HEMOGLOBIN 27.7 pg (27.0-34.8); MEAN CORPUSCULAR HGB CONC 32.7 g/dL (32.4-35.8); MEAN PLATELET VOLUME 10.3 fL (7.4-10.4); MONOCYTES % (AUTO) 9 % (2-9); NEUTROPHILS % (AUTO) 82 % (42-75); PLATELET COUNT 150 x10^3/uL (130-400); RED BLOOD COUNT 5.31 x10^6/uL (3.82-5.3); RED CELL DISTRIBUTION WIDTH 19.7 % (9.6-15.2)
[2020-10-10 15:19] LABS: MD NO
--- NOTE | 2020-10-10 15:19 | NUR ---
TASK RN: LAB NEEDS TO REDRAW D/T HEMOLYZED SAMPLE. PRIMARY RN UPDATED.
[2020-10-10 15:47] LABS: ALBUMIN 3.3 g/dL (3.4-5.0); ANION GAP 5 mmol/L (5-15); CALCIUM 9.7 mg/dL (8.5-10.1); CHLORIDE 107 mmol/L (98-107); CREATININE 1.27 mg/dL (0.55-1.02)
[2020-10-10] MEDS ORDERED: OMNIPAQUE 350 MG/ML, 100ML BOTTLE ONE (16:10)
--- NOTE | 2020-10-10 16:10 | NUR ---
pt to imaging
--- NOTE | 2020-10-10 16:18 | NUR ---
PATIENT BACK IN BED. CALL LIGHT IN REACH
[2020-10-10] MEDS ORDERED: VANCOMYCIN PER PHARMACY MC PRN (16:30)
[2020-10-10] MEDS ORDERED: VANCOMYCIN 1,500 MG in SODIUM CHLORIDE 0.9% 250 ML IV ONE (16:30)
--- NOTE | 2020-10-10 17:27 | NUR ---
Abx requested from pharmacy
--- NOTE | 2020-10-10 18:32 | NUR ---
pt resting in bed, abx infusing.
--- NOTE | 2020-10-10 18:50 | NUR ---
report to elijah
[2020-10-10 19:51] VITALS: BP 140/74
== END 2020-10-10 19:53 | disposition home or self-care (01) ==
LOC: ED 16:26
DX: L03.211 Cellulitis of face (principal); R51.9 Headache, unspecified; I10 Essential (primary) hypertension; J44.9 Chronic obstructive pulmonary disease, unspecified; E03.9 Hypothyroidism, unspecified; Z87.891 Personal history of nicotine dependence
CPT/HCPCS: 36415; 70360; 70491; 80048; 82040; 85025; 96365; 96366; 99285; J3370; J7050; Q9967

== ENCOUNTER 2020-12-30 16:35 | Inpatient (IN) | payer MEDICARE ==
[~2020-12-30] VITALS: Ht 177.8 cm; Wt 72.3 kg
[~2020-12-30 16:35] MED LIST changes: +AMOX1TAB64 PO; +ESTR0.3T PO; -HYDR-1067 PO; +HYDR-2214 PO; +LISI-606 PO; +METO-290 PO; +MIRT-15 PO; -MIRT30TA4 PO; -VANC1VIA3 PO; +VANC1VIA36 PO
[2020-12-30 17:29] LABS: BASOPHILS % (AUTO) 1 % (0-1); EOSINOPHILS % (AUTO) 1 % (1-7); LYMPHOCYTES % (AUTO) 11 % (22-44); MEAN CORPUSCULAR HEMOGLOBIN 28.7 pg (27.0-34.8); MEAN CORPUSCULAR HGB CONC 32.4 g/dL (32.4-35.8); MEAN PLATELET VOLUME 10.3 fL (7.4-10.4); MONOCYTES % (AUTO) 6 % (2-9); NEUTROPHILS % (AUTO) 81 % (42-75); PLATELET COUNT 190 x10^3/uL (130-400); RED BLOOD COUNT 4.23 x10^6/uL (3.82-5.3)
[2020-12-30] MEDS ORDERED: SODIUM CHLORIDE 0.9% 1,000ML IVBOLUS ONE (17:30)
[2020-12-30] MEDS ORDERED: SODIUM CHLORIDE FLUSH 10ML SYR IVF ONE (17:30)
[2020-12-30 17:41] LABS: ANION GAP 5 mmol/L (5-15); CALCIUM 9.5 mg/dL (8.5-10.1); CHLORIDE 108 mmol/L (98-107); CREATININE 0.95 mg/dL (0.55-1.02)
--- NOTE | 2020-12-30 17:45 | NUR ---
PT RECENTLY ADMITTED HERE, HAS INCREASING REDNESS AND SWELLING AND PAIN TO RLE ANKLE/LOWER LEG FROM CANCR REMOVAL. PT STATES CANCER WAS "LARGE AND THERE WAS ENOUGH SKIN SURROUNDING IT TO HELP IT HEAL". WHITE DRAINAGE TO WOUND, SKIN RED SURROUNDING WOUND AND LEG AND FOOT.
[2020-12-30] MEDS ORDERED: AMPICILLIN/SULBACTAM 3 GM in SODIUM CHLORIDE 0.9% 100 ML IV ONE (18:42)
[2020-12-30] MEDS ORDERED: VANCOMYCIN PER PHARMACY MC ONE (19:00)
[2020-12-30] MEDS ORDERED: VANCOMYCIN 1,700 MG in SODIUM CHLORIDE 0.9% 250 ML IV ONE (19:00)
[2020-12-30] MEDS ORDERED: HYDROmorphone 1 MG/ML, 1ML INJ ONE (19:26)
[2020-12-30] MEDS ORDERED: ONDANSETRON 2MG/ML, 2ML ONE (19:46)
[2020-12-30] MEDS ORDERED: ONDANSETRON 2MG/ML, 2ML IVPush ONE (20:00)
[2020-12-30] MEDS ORDERED: HYDROmorphone 1 MG/ML, 1ML INJ IV ONE (20:00)
[2020-12-30] MEDS ORDERED: DEXA0.5E2 PO (20:08)
[2020-12-30] MEDS ORDERED: FLUO20CA19 PO (20:08)
[2020-12-30] MEDS ORDERED: ALBU18HF INH (20:08)
[2020-12-30] MEDS ORDERED: DOXE25CA PO (20:08)
[2020-12-30] MEDS ORDERED: FLUT9.9S16 NS (20:08)
[2020-12-30] MEDS ORDERED: BUDE0.5A INH (20:08)
[2020-12-30] MEDS ORDERED: BUPR150T73 PO (20:08)
[2020-12-30] MEDS ORDERED: METH20TA8 PO (20:08)
[2020-12-30] MEDS ORDERED: TIOT18CA INH (20:08)
[2020-12-30] MEDS ORDERED: BETA15OI3 HOMEMISC (20:08)
[2020-12-30] MEDS ORDERED: GUAIFENESIN/DM 200-20MG, 10ML UDC PO PRN (20:30)
[2020-12-30] MEDS ORDERED: morphine SULFATE 10 MG/ML, 1ML IVPush PRN (20:30)
[2020-12-30] MEDS ORDERED: POTASSIUM CHLORIDE 20 MEQ PO SCH (20:30)
[2020-12-30] MEDS ORDERED: ALBUTEROL SULFATE 2.5 MG/3 ML NPPB PRN (20:30)
[2020-12-30] MEDS ORDERED: VANCOMYCIN PER PHARMACY MC PRN (20:30)
[2020-12-30] MEDS ORDERED: DOCUSATE 100 MG CAPSULE PO PRN (20:30)
[2020-12-30] MEDS ORDERED: BETAMETHASONE DIPRO OINT 0.05%, 15GM TP SCH (20:30)
[2020-12-30] MEDS ORDERED: ENALAPRILAT 1.25 MG/ML, 2ML IVPush PRN (20:30)
[2020-12-30] MEDS ORDERED: ONDANSETRON 2MG/ML, 2ML IVPush PRN (20:30)
[2020-12-30] MEDS ORDERED: ZOLPIDEM 5MG TABLET PO PRN (20:30)
--- NOTE | 2020-12-30 20:52 | NUR ---
REPORT GIVEN TO SOUTH BOWLES
[2020-12-30] MEDS: METHYLPHENIDATE HCL HOMEMEDPO SCH (21:00)
[2020-12-30] MEDS ORDERED: FLUTICASONE FUROATE 50 MCG NS SCH (21:00)
[2020-12-30] MEDS ORDERED: BUDESONIDE 0.5 MG/2 ML INHA INH SCH (21:00)
[2020-12-30] MEDS: OXYcodone IR 5MG TABLET PO SCH ×2 (21:00→22:41)
[2020-12-30 21:40] VITALS: BP 106/68
[2020-12-30] MEDS ORDERED: PHARMACOKINETIC MONITORING MC PRN (22:00)
[2020-12-30] MEDS: IPRATROPIUM 0.5 MG/2.5 ML INHA HHN SCH (22:00)
[2020-12-30] MEDS ORDERED: PHARMACOKINETIC CONSULTATION MC ONE (22:00)
[2020-12-30] MEDS: POTASSIUM MC SCH (22:30)
[2020-12-30] MEDS: BUDESONIDE MC SCH (22:30)
[2020-12-30] MEDS: SIMVASTATIN 20 MG TABLET PO SCH (22:41)
[2020-12-30] MEDS: DOXEPIN 25 MG CAPSULE PO SCH (22:41)
[2020-12-30] MEDS: ROPINIROLE 1MG TABLET PO SCH (22:41)
[2020-12-30] MEDS: BUPROPION SR 150 MG TABLET PO SCH (22:41)
[2020-12-30] MEDS: CYCLOBENZAPRINE 10 MG TABLET PO SCH (22:42)
[2020-12-30] MEDS: TRAZODONE 100MG TABLET PO SCH (22:42)
[2020-12-30] MEDS: MIRTAZAPINE 30 MG TABLET PO SCH (23:04)
[2020-12-30] MEDS: LIOTHYRONINE 25 MCG TABLET PO SCH (23:05)
[2020-12-31] MEDS: AMPICILLIN/SULBACTAM 3 GM in SODIUM CHLORIDE 0.9% 100 ML IV SCH ×4 (01:45→20:01)
[2020-12-31 02:15] VITALS: BP 131/74
[2020-12-31] MEDS: IPRATROPIUM 0.5 MG/2.5 ML INHA HHN SCH (04:00)
[2020-12-31] MEDS: OXYcodone IR 5MG TABLET PO SCH ×5 (05:10→21:53)
[2020-12-31] MEDS: LEVOTHYROXINE 112 MCG TABLET PO SCH (05:10)
[2020-12-31 05:30] LABS: BASOPHILS % (AUTO) 1 % (0-1); EOSINOPHILS % (AUTO) 4 % (1-7); LYMPHOCYTES % (AUTO) 24 % (22-44); MEAN CORPUSCULAR HEMOGLOBIN 28.9 pg (27.0-34.8); MEAN CORPUSCULAR HGB CONC 32.9 g/dL (32.4-35.8); MEAN PLATELET VOLUME 10.2 fL (7.4-10.4); MONOCYTES % (AUTO) 10 % (2-9); NEUTROPHILS % (AUTO) 61 % (42-75); PLATELET COUNT 141 x10^3/uL (130-400); RED BLOOD COUNT 3.82 x10^6/uL (3.82-5.3); RED CELL DISTRIBUTION WIDTH 15.8 % (9.6-15.2)
[2020-12-31 05:41] LABS: ANION GAP 5 mmol/L (5-15); CALCIUM 8.4 mg/dL (8.5-10.1); CHLORIDE 110 mmol/L (98-107)
[2020-12-31 05:43] LABS: CREATININE 0.67 mg/dL (0.55-1.02)
[2020-12-31] MEDS: BUDESONIDE MC SCH (05:49)
[2020-12-31] MEDS: POTASSIUM MC SCH (05:49)
[2020-12-31] MEDS ORDERED: IPRATROPIUM 0.5 MG/2.5 ML INHA HHN SCH (07:00)
[2020-12-31] MEDS: OMEPRAZOLE 20 MG CAPSULE.DR PO SCH (07:26)
[2020-12-31] MEDS: LUBIPROSTONE 24 MCG CAPSULE PO SCH (07:26)
[2020-12-31] MEDS ORDERED: ALBUTEROL/IPRATROPIUM 2.5MG/0.5MG, 3 ML ONE (07:40)
[2020-12-31] MEDS: BUDESONIDE 0.5 MG/2 ML INHA INH SCH ×2 (07:45→20:18)
[2020-12-31 07:58] VITALS: BP 116/71
[2020-12-31] MEDS: ASPIRIN 81 MG TABLET EC PO SCH (10:08)
[2020-12-31] MEDS: AMIODARONE 200 MG TABLET PO SCH (10:08)
[2020-12-31] MEDS: CYCLOBENZAPRINE 10 MG TABLET PO SCH ×3 (10:08→21:53)
[2020-12-31] MEDS: BETAMETHASONE DIPRO CRM 0.05%, 15GM TP SCH (10:09)
[2020-12-31] MEDS: HYDROCHLOROTHIAZIDE 25 MG TABLET PO SCH (10:09)
[2020-12-31] MEDS: METOPROLOL SUCCINATE 50 MG TAB.ER.24H PO SCH (10:09)
[2020-12-31] MEDS: FLUOXETINE HCL 20 MG CAPSULE PO SCH (10:09)
[2020-12-31] MEDS: BUPROPION SR 150 MG TABLET PO SCH ×2 (10:09→21:53)
[2020-12-31] MEDS: DEXAMETHASONE 0.5 MG TABLET PO SCH (10:09)
[2020-12-31] MEDS: LISINOPRIL 5 MG TABLET PO SCH (10:09)
[2020-12-31] MEDS: ESTROGEN CONJUGATED 0.3 MG TABLET PO SCH (10:09)
[2020-12-31] MEDS: METHYLPHENIDATE HCL HOMEMEDPO SCH ×2 (10:10→21:00)
[2020-12-31] MEDS: VILAZODONE HYDROCHLORIDE HOMEMEDPO SCH (10:11)
[2020-12-31] MEDS: FLUTICASONE NASAL SPRAY 16GM NAS SCH ×2 (10:14→21:00)
[2020-12-31] MEDS: FUROSEMIDE 20 MG TABLET PO SCH (10:14)
[2020-12-31] MEDS: POTASSIUM CHLORIDE 20 MEQ TAB.ER.PRT PO SCH ×2 (12:02→16:14)
[2020-12-31 13:37] VITALS: BP 99/64
[2020-12-31] MEDS: VANCOMYCIN 1,300 MG in SODIUM CHLORIDE 0.9% 250 ML IV SCH (14:09)
[2020-12-31] MEDS: ALBUTEROL/IPRATROPIUM 2.5MG/0.5MG, 3 ML NPPB SCH ×2 (15:00→20:18)
[2020-12-31 19:39] VITALS: BP 121/71
[2020-12-31] MEDS: SIMVASTATIN 20 MG TABLET PO SCH (21:53)
[2020-12-31] MEDS: DOXEPIN 25 MG CAPSULE PO SCH (21:53)
[2020-12-31] MEDS: LIOTHYRONINE 25 MCG TABLET PO SCH (21:54)
[2020-12-31] MEDS: ROPINIROLE 1MG TABLET PO SCH (21:54)
[2020-12-31] MEDS: TRAZODONE 100MG TABLET PO SCH (21:54)
[2020-12-31] MEDS: MIRTAZAPINE 30 MG TABLET PO SCH (21:54)
[2021-01-01 00:04] VITALS: BP 144/75
[2021-01-01] MEDS: ALBUTEROL/IPRATROPIUM 2.5MG/0.5MG, 3 ML NPPB SCH ×4 (01:18→20:46)
[2021-01-01] MEDS: AMPICILLIN/SULBACTAM 3 GM in SODIUM CHLORIDE 0.9% 100 ML IV SCH ×4 (01:33→19:48)
[2021-01-01] MEDS: HYDROcodone/APAP 5/325 TABLET PO PRN ×2 (01:37→08:44)
[2021-01-01] MEDS: OXYcodone IR 5MG TABLET PO SCH ×5 (05:51→22:07)
[2021-01-01] MEDS: LEVOTHYROXINE 112 MCG TABLET PO SCH (05:51)
[2021-01-01] MEDS: OMEPRAZOLE 20 MG CAPSULE.DR PO SCH (07:43)
[2021-01-01] MEDS: ACETAMINOPHEN 325 MG TABLET PO PRN ×2 (07:43→14:11)
[2021-01-01 07:47] VITALS: BP 125/66
[2021-01-01] MEDS: VANCOMYCIN 1,300 MG in SODIUM CHLORIDE 0.9% 250 ML IV SCH (08:41)
[2021-01-01] MEDS: LUBIPROSTONE 24 MCG CAPSULE PO SCH (08:43)
[2021-01-01] MEDS: ASPIRIN 81 MG TABLET EC PO SCH (08:43)
[2021-01-01] MEDS: CYCLOBENZAPRINE 10 MG TABLET PO SCH ×3 (08:43→22:06)
[2021-01-01] MEDS: POTASSIUM CHLORIDE 20 MEQ TAB.ER.PRT PO SCH ×3 (08:43→17:46)
[2021-01-01] MEDS: ESTROGEN CONJUGATED 0.3 MG TABLET PO SCH (08:43)
[2021-01-01] MEDS: FLUOXETINE HCL 20 MG CAPSULE PO SCH (08:44)
[2021-01-01] MEDS: METOPROLOL SUCCINATE 50 MG TAB.ER.24H PO SCH (08:44)
[2021-01-01] MEDS: FUROSEMIDE 20 MG TABLET PO SCH (08:44)
[2021-01-01] MEDS: BUPROPION SR 150 MG TABLET PO SCH ×2 (08:44→22:07)
[2021-01-01] MEDS: AMIODARONE 200 MG TABLET PO SCH (08:44)
[2021-01-01] MEDS: HYDROCHLOROTHIAZIDE 25 MG TABLET PO SCH (08:44)
[2021-01-01] MEDS: DEXAMETHASONE 0.5 MG TABLET PO SCH (08:44)
[2021-01-01] MEDS: LISINOPRIL 5 MG TABLET PO SCH (08:44)
[2021-01-01] MEDS: METHYLPHENIDATE HCL HOMEMEDPO SCH ×2 (08:45→21:00)
[2021-01-01] MEDS: VILAZODONE HYDROCHLORIDE HOMEMEDPO SCH (08:45)
[2021-01-01] MEDS: BETAMETHASONE DIPRO CRM 0.05%, 15GM TP SCH (08:46)
[2021-01-01] MEDS: FLUTICASONE NASAL SPRAY 16GM NAS SCH ×2 (08:47→21:00)
[2021-01-01] MEDS: BUDESONIDE 0.5 MG/2 ML INHA INH SCH ×2 (09:14→20:46)
[2021-01-01 13:31] VITALS: BP 108/61
[2021-01-01 19:52] VITALS: BP 125/79
[2021-01-01] MEDS: MIRTAZAPINE 30 MG TABLET PO SCH (22:06)
[2021-01-01] MEDS: ROPINIROLE 1MG TABLET PO SCH (22:06)
[2021-01-01] MEDS: SIMVASTATIN 20 MG TABLET PO SCH (22:06)
[2021-01-01] MEDS: LIOTHYRONINE 25 MCG TABLET PO SCH (22:06)
[2021-01-01] MEDS: TRAZODONE 100MG TABLET PO SCH (22:07)
[2021-01-01] MEDS: DOXEPIN 25 MG CAPSULE PO SCH (22:07)
[2021-01-02] MEDS: AMPICILLIN/SULBACTAM 3 GM in SODIUM CHLORIDE 0.9% 100 ML IV SCH ×2 (01:08→07:44)
[2021-01-02 01:54] VITALS: BP 115/67
[2021-01-02] MEDS: VANCOMYCIN 1,300 MG in SODIUM CHLORIDE 0.9% 250 ML IV SCH (02:17)
[2021-01-02] MEDS: ALBUTEROL/IPRATROPIUM 2.5MG/0.5MG, 3 ML NPPB SCH ×2 (03:10→08:30)
[2021-01-02 05:17] LABS: BASOPHILS % (AUTO) 1 % (0-1); EOSINOPHILS % (AUTO) 3 % (1-7); LYMPHOCYTES % (AUTO) 22 % (22-44); MEAN PLATELET VOLUME 10.4 fL (7.4-10.4); MONOCYTES % (AUTO) 9 % (2-9); NEUTROPHILS % (AUTO) 66 % (42-75); PLATELET COUNT 160 x10^3/uL (130-400); RED BLOOD COUNT 3.69 x10^6/uL (3.82-5.3); RED CELL DISTRIBUTION WIDTH 16.1 % (9.6-15.2)
[2021-01-02 05:19] LABS: ALBUMIN 2.5 g/dL (3.4-5.0); CALCIUM 8.5 mg/dL (8.5-10.1); CHLORIDE 110 mmol/L (98-107)
[2021-01-02 05:22] LABS: ANION GAP 6 mmol/L (5-15); CREATININE 0.77 mg/dL (0.55-1.02)
[2021-01-02] MEDS: OXYcodone IR 5MG TABLET PO SCH ×6 (05:44→22:11)
[2021-01-02] MEDS: LEVOTHYROXINE 112 MCG TABLET PO SCH (05:44)
[2021-01-02 07:24] VITALS: BP 126/74
[2021-01-02] MEDS: FUROSEMIDE 20 MG TABLET PO SCH (07:42)
[2021-01-02] MEDS: FLUTICASONE NASAL SPRAY 16GM NAS SCH ×2 (07:43→22:12)
[2021-01-02] MEDS: BETAMETHASONE DIPRO CRM 0.05%, 15GM TP SCH (07:43)
[2021-01-02] MEDS: LUBIPROSTONE 24 MCG CAPSULE PO SCH (07:44)
[2021-01-02] MEDS: OMEPRAZOLE 20 MG CAPSULE.DR PO SCH (07:44)
[2021-01-02] MEDS: POTASSIUM CHLORIDE 20 MEQ TAB.ER.PRT PO SCH ×3 (07:44→17:07)
[2021-01-02] MEDS ORDERED: POTASSIUM CHLORIDE 20 MEQ TAB.ER.PRT PO SCH (08:00)
[2021-01-02] MEDS: BUDESONIDE 0.5 MG/2 ML INHA INH SCH (08:30)
[2021-01-02] MEDS: METHYLPHENIDATE HCL HOMEMEDPO SCH ×2 (09:00→22:21)
[2021-01-02] MEDS: VILAZODONE HYDROCHLORIDE HOMEMEDPO SCH (09:00)
[2021-01-02] MEDS: ESTROGEN CONJUGATED 0.3 MG TABLET PO SCH (09:08)
[2021-01-02] MEDS: DEXAMETHASONE 0.5 MG TABLET PO SCH (09:10)
[2021-01-02] MEDS: ASPIRIN 81 MG TABLET EC PO SCH (09:10)
[2021-01-02] MEDS: HYDROCHLOROTHIAZIDE 25 MG TABLET PO SCH (09:10)
[2021-01-02] MEDS: CYCLOBENZAPRINE 10 MG TABLET PO SCH ×3 (09:10→22:12)
[2021-01-02] MEDS: AMIODARONE 200 MG TABLET PO SCH (09:10)
[2021-01-02] MEDS: LISINOPRIL 5 MG TABLET PO SCH (09:11)
[2021-01-02] MEDS: BUPROPION SR 150 MG TABLET PO SCH ×2 (09:11→22:11)
[2021-01-02] MEDS: FLUOXETINE HCL 20 MG CAPSULE PO SCH (09:11)
[2021-01-02] MEDS: METOPROLOL SUCCINATE 50 MG TAB.ER.24H PO SCH (09:11)
[2021-01-02] MEDS: HYDROcodone/APAP 5/325 TABLET PO PRN (12:00)
[2021-01-02 13:54] VITALS: BP 150/89
[2021-01-02 19:27] VITALS: BP 142/73
[2021-01-02] MEDS: AMOXICILLIN/CLAV 875-125MG TABLET PO SCH (22:11)
[2021-01-02] MEDS: DOXEPIN 25 MG CAPSULE PO SCH (22:11)
[2021-01-02] MEDS: ROPINIROLE 1MG TABLET PO SCH (22:11)
[2021-01-02] MEDS: MIRTAZAPINE 30 MG TABLET PO SCH (22:12)
[2021-01-02] MEDS: SIMVASTATIN 20 MG TABLET PO SCH (22:12)
[2021-01-02] MEDS: LIOTHYRONINE 25 MCG TABLET PO SCH (22:12)
[2021-01-02] MEDS: TRAZODONE 100MG TABLET PO SCH (22:12)
[2021-01-03 02:07] VITALS: BP 116/66
[2021-01-03] MEDS: LEVOTHYROXINE 112 MCG TABLET PO SCH (05:54)
[2021-01-03] MEDS: OXYcodone IR 5MG TABLET PO SCH ×2 (05:54→10:01)
[2021-01-03] MEDS: LISINOPRIL 5 MG TABLET PO SCH (08:20)
[2021-01-03] MEDS: BUPROPION SR 150 MG TABLET PO SCH (08:20)
[2021-01-03] MEDS: LUBIPROSTONE 24 MCG CAPSULE PO SCH (08:20)
[2021-01-03] MEDS: FUROSEMIDE 20 MG TABLET PO SCH ×2 (08:20→08:33)
[2021-01-03] MEDS: ASPIRIN 81 MG TABLET EC PO SCH (08:20)
[2021-01-03] MEDS: OMEPRAZOLE 20 MG CAPSULE.DR PO SCH (08:20)
[2021-01-03] MEDS: AMOXICILLIN/CLAV 875-125MG TABLET PO SCH (08:20)
[2021-01-03] MEDS: HYDROCHLOROTHIAZIDE 25 MG TABLET PO SCH (08:20)
[2021-01-03] MEDS: ESTROGEN CONJUGATED 0.3 MG TABLET PO SCH (08:21)
[2021-01-03] MEDS: AMIODARONE 200 MG TABLET PO SCH (08:21)
[2021-01-03] MEDS: METOPROLOL SUCCINATE 50 MG TAB.ER.24H PO SCH (08:21)
[2021-01-03] MEDS: DEXAMETHASONE 0.5 MG TABLET PO SCH (08:21)
[2021-01-03] MEDS: POTASSIUM CHLORIDE 20 MEQ TAB.ER.PRT PO SCH (08:21)
[2021-01-03] MEDS: CYCLOBENZAPRINE 10 MG TABLET PO SCH (08:21)
[2021-01-03] MEDS: FLUOXETINE HCL 20 MG CAPSULE PO SCH (08:21)
[2021-01-03 08:28] VITALS: BP 147/92
[2021-01-03] MEDS: METHYLPHENIDATE HCL HOMEMEDPO SCH (08:31)
[2021-01-03] MEDS: BETAMETHASONE DIPRO CRM 0.05%, 15GM TP SCH (08:31)
[2021-01-03] MEDS: FLUTICASONE NASAL SPRAY 16GM NAS SCH (08:31)
[2021-01-03] MEDS: VILAZODONE HYDROCHLORIDE HOMEMEDPO SCH (08:31)
[2021-01-03] MEDS ORDERED: AMOX1TAB12 PO (09:17)
== END 2021-01-03 12:24 | disposition home health service (06) | DRG 603 ==
LOC: ED 17:05 → EDIP 19:50 → 4NW 21:16
PROVIDERS: ADMIT Internal Medicine; ATTEND Family Medicine
DX: L03.116 Cellulitis of left lower limb (principal); I50.32 Chronic diastolic (congestive) heart failure; E03.9 Hypothyroidism, unspecified; E78.5 Hyperlipidemia, unspecified; F32.9 Major depressive disorder, single episode, unspecified; F90.9 Attention-deficit hyperactivity disorder, unspecified type; G25.81 Restless legs syndrome; G47.00 Insomnia, unspecified; G89.4 Chronic pain syndrome; I11.0 Hypertensive heart disease with heart failure; I25.10 Atherosclerotic heart disease of native coronary artery without angina pectoris; J44.9 Chronic obstructive pulmonary disease, unspecified; K58.9 Irritable bowel syndrome, unspecified; Z82.0 Family history of epilepsy and other diseases of the nervous system; Z82.49 Family history of ischemic heart disease and other diseases of the circulatory system; Z82.5 Family history of asthma and other chronic lower respiratory diseases; Z83.3 Family history of diabetes mellitus; Z87.891 Personal history of nicotine dependence; Z90.710 Acquired absence of both cervix and uterus; Z95.5 Presence of coronary angioplasty implant and graft; Z99.81 Dependence on supplemental oxygen; Z88.5 Allergy status to narcotic agent; Z88.2 Allergy status to sulfonamides; Z88.8 Allergy status to other drugs, medicaments and biological substances; S81.802A Unspecified open wound, left lower leg, initial encounter; X58.XXXA Exposure to other specified factors, initial encounter
CPT/HCPCS: 36415; 80048; 80069; 80202; 82040; 83605; 83735; 84100; 85025; 87040; 94640; 96374; 96375; 96376; 99285; G0378; J0295; J1170; J2405; J3370; J7626; J7644; J7030; J7050

== ENCOUNTER 2021-01-11 13:41 | Outpatient (CLI) | payer MEDICARE ==
[~2021-01-11 13:41] MED LIST changes: +AMOX1TAB12 PO; +BETA15OI3 HOMEMISC; +BUDE0.5A INH; +BUPR150T73 PO; +DEXA0.5E2 PO; +DOXE25CA PO; +FLUO20CA19 PO; +FLUT9.9S16 NS
== END 2021-01-11 23:59 | disposition home or self-care (01) ==
LOC: WOUND 13:41
PROVIDERS: ATTEND Nurse Practitioner Family
DX: T81.31XA Disruption of external operation (surgical) wound, not elsewhere classified, initial encounter (principal); T81.49XA Infection following a procedure, other surgical site, initial encounter; A49.01 Methicillin susceptible Staphylococcus aureus infection, unspecified site; K21.9 Gastro-esophageal reflux disease without esophagitis; F32.9 Major depressive disorder, single episode, unspecified; I48.0 Paroxysmal atrial fibrillation; I25.10 Atherosclerotic heart disease of native coronary artery without angina pectoris; E03.9 Hypothyroidism, unspecified; G47.00 Insomnia, unspecified; F12.10 Cannabis abuse, uncomplicated; I48.20 Chronic atrial fibrillation, unspecified; G89.4 Chronic pain syndrome; E78.5 Hyperlipidemia, unspecified; I11.0 Hypertensive heart disease with heart failure; I50.32 Chronic diastolic (congestive) heart failure; K58.9 Irritable bowel syndrome, unspecified; Z90.710 Acquired absence of both cervix and uterus; Z95.5 Presence of coronary angioplasty implant and graft; Z87.891 Personal history of nicotine dependence; Z90.49 Acquired absence of other specified parts of digestive tract; Z79.82 Long term (current) use of aspirin; Z88.5 Allergy status to narcotic agent; Z88.2 Allergy status to sulfonamides; Z88.8 Allergy status to other drugs, medicaments and biological substances; Y83.8 Other surgical procedures as the cause of abnormal reaction of the patient, or of later complication, without mention of misadventure at the time of the procedure; Y92.238 Other place in hospital as the place of occurrence of the external cause
CPT/HCPCS: 97597; G0463

== ENCOUNTER → 2021-01-18 | Outpatient (CLI) | payer MEDICARE | END | disposition home or self-care (01) | LOC: WOUND 13:24 | PROVIDERS: ATTEND Nurse Practitioner Family | DX: T81.32XD Disruption of internal operation (surgical) wound, not elsewhere classified, subsequent encounter (principal); T81.49XD Infection following a procedure, other surgical site, subsequent encounter; A49.01 Methicillin susceptible Staphylococcus aureus infection, unspecified site; K21.9 Gastro-esophageal reflux disease without esophagitis; F32.9 Major depressive disorder, single episode, unspecified; I48.0 Paroxysmal atrial fibrillation; I25.10 Atherosclerotic heart disease of native coronary artery without angina pectoris; E03.9 Hypothyroidism, unspecified; G47.00 Insomnia, unspecified; F12.10 Cannabis abuse, uncomplicated; I48.20 Chronic atrial fibrillation, unspecified; G89.4 Chronic pain syndrome; E78.5 Hyperlipidemia, unspecified; I11.0 Hypertensive heart disease with heart failure; I50.32 Chronic diastolic (congestive) heart failure; K58.9 Irritable bowel syndrome, unspecified; Z90.710 Acquired absence of both cervix and uterus; Z95.5 Presence of coronary angioplasty implant and graft; Z87.891 Personal history of nicotine dependence; Z90.49 Acquired absence of other specified parts of digestive tract; Z79.82 Long term (current) use of aspirin; Z88.5 Allergy status to narcotic agent; Z88.2 Allergy status to sulfonamides; Z88.8 Allergy status to other drugs, medicaments and biological substances; Y83.8 Other surgical procedures as the cause of abnormal reaction of the patient, or of later complication, without mention of misadventure at the time of the procedure | CPT/HCPCS: 97597 ==

== ENCOUNTER → 2021-01-25 | Outpatient (CLI) | payer MEDICARE | END | disposition home or self-care (01) | LOC: WOUND 13:52 | PROVIDERS: ATTEND Nurse Practitioner Family | DX: T81.32XD Disruption of internal operation (surgical) wound, not elsewhere classified, subsequent encounter (principal); T81.49XD Infection following a procedure, other surgical site, subsequent encounter; A49.01 Methicillin susceptible Staphylococcus aureus infection, unspecified site; K21.9 Gastro-esophageal reflux disease without esophagitis; F32.9 Major depressive disorder, single episode, unspecified; I48.0 Paroxysmal atrial fibrillation; I25.10 Atherosclerotic heart disease of native coronary artery without angina pectoris; E03.9 Hypothyroidism, unspecified; G47.00 Insomnia, unspecified; F12.10 Cannabis abuse, uncomplicated; I48.20 Chronic atrial fibrillation, unspecified; G89.4 Chronic pain syndrome; E78.5 Hyperlipidemia, unspecified; I11.0 Hypertensive heart disease with heart failure; I50.32 Chronic diastolic (congestive) heart failure; K58.9 Irritable bowel syndrome, unspecified; J44.9 Chronic obstructive pulmonary disease, unspecified; Z90.710 Acquired absence of both cervix and uterus; Z95.5 Presence of coronary angioplasty implant and graft; Z87.891 Personal history of nicotine dependence; Z90.49 Acquired absence of other specified parts of digestive tract; Z79.82 Long term (current) use of aspirin; Z88.5 Allergy status to narcotic agent; Z88.2 Allergy status to sulfonamides; Z88.8 Allergy status to other drugs, medicaments and biological substances; Y83.8 Other surgical procedures as the cause of abnormal reaction of the patient, or of later complication, without mention of misadventure at the time of the procedure | CPT/HCPCS: 97597 ==

== ENCOUNTER 2021-02-01 10:27 | Outpatient (CLI) | payer MEDICARE | END 2021-02-01 23:59 | disposition home or self-care (01) | LOC: WOUND 10:27 | PROVIDERS: ATTEND Nurse Practitioner Family | DX: T81.32XD Disruption of internal operation (surgical) wound, not elsewhere classified, subsequent encounter (principal); T81.49XD Infection following a procedure, other surgical site, subsequent encounter; A49.01 Methicillin susceptible Staphylococcus aureus infection, unspecified site; K21.9 Gastro-esophageal reflux disease without esophagitis; F32.9 Major depressive disorder, single episode, unspecified; I48.0 Paroxysmal atrial fibrillation; I25.10 Atherosclerotic heart disease of native coronary artery without angina pectoris; E03.9 Hypothyroidism, unspecified; G47.00 Insomnia, unspecified; F12.10 Cannabis abuse, uncomplicated; I48.20 Chronic atrial fibrillation, unspecified; G89.4 Chronic pain syndrome; E78.5 Hyperlipidemia, unspecified; I11.0 Hypertensive heart disease with heart failure; I50.32 Chronic diastolic (congestive) heart failure; K58.9 Irritable bowel syndrome, unspecified; J44.9 Chronic obstructive pulmonary disease, unspecified; Z95.5 Presence of coronary angioplasty implant and graft; Z87.891 Personal history of nicotine dependence; Z90.710 Acquired absence of both cervix and uterus; Z90.49 Acquired absence of other specified parts of digestive tract; Z79.82 Long term (current) use of aspirin; Z88.5 Allergy status to narcotic agent; Z88.2 Allergy status to sulfonamides; Z88.8 Allergy status to other drugs, medicaments and biological substances; Y83.8 Other surgical procedures as the cause of abnormal reaction of the patient, or of later complication, without mention of misadventure at the time of the procedure | CPT/HCPCS: 97597 ==

== ENCOUNTER → 2021-02-08 | Outpatient (CLI) | payer MEDICARE | END | disposition home or self-care (01) | LOC: WOUND 08:27 | PROVIDERS: ATTEND Nurse Practitioner Family | DX: T81.32XD Disruption of internal operation (surgical) wound, not elsewhere classified, subsequent encounter (principal); T81.49XD Infection following a procedure, other surgical site, subsequent encounter; A49.01 Methicillin susceptible Staphylococcus aureus infection, unspecified site; K21.9 Gastro-esophageal reflux disease without esophagitis; F32.9 Major depressive disorder, single episode, unspecified; I48.0 Paroxysmal atrial fibrillation; I25.10 Atherosclerotic heart disease of native coronary artery without angina pectoris; E03.9 Hypothyroidism, unspecified; G47.00 Insomnia, unspecified; F12.10 Cannabis abuse, uncomplicated; I48.20 Chronic atrial fibrillation, unspecified; G89.4 Chronic pain syndrome; E78.5 Hyperlipidemia, unspecified; I11.0 Hypertensive heart disease with heart failure; I50.32 Chronic diastolic (congestive) heart failure; K58.9 Irritable bowel syndrome, unspecified; J44.9 Chronic obstructive pulmonary disease, unspecified; Z90.710 Acquired absence of both cervix and uterus; Z95.5 Presence of coronary angioplasty implant and graft; Z87.891 Personal history of nicotine dependence; Z90.49 Acquired absence of other specified parts of digestive tract; Z79.82 Long term (current) use of aspirin; Z88.5 Allergy status to narcotic agent; Z88.2 Allergy status to sulfonamides; Z88.8 Allergy status to other drugs, medicaments and biological substances; Y83.8 Other surgical procedures as the cause of abnormal reaction of the patient, or of later complication, without mention of misadventure at the time of the procedure | CPT/HCPCS: 97602 ==

== ENCOUNTER 2021-02-11 08:19 | Outpatient (CLI) | payer MEDICARE | END 2021-02-11 23:59 | disposition home or self-care (01) | LOC: WOUND 08:19 | PROVIDERS: ATTEND Internal Medicine | DX: T81.32XD Disruption of internal operation (surgical) wound, not elsewhere classified, subsequent encounter (principal); T81.49XD Infection following a procedure, other surgical site, subsequent encounter; A49.01 Methicillin susceptible Staphylococcus aureus infection, unspecified site; K21.9 Gastro-esophageal reflux disease without esophagitis; F32.9 Major depressive disorder, single episode, unspecified; I48.0 Paroxysmal atrial fibrillation; I25.10 Atherosclerotic heart disease of native coronary artery without angina pectoris; E03.9 Hypothyroidism, unspecified; G47.00 Insomnia, unspecified; F12.10 Cannabis abuse, uncomplicated; I48.20 Chronic atrial fibrillation, unspecified; G89.4 Chronic pain syndrome; E78.5 Hyperlipidemia, unspecified; I11.0 Hypertensive heart disease with heart failure; I50.32 Chronic diastolic (congestive) heart failure; K58.9 Irritable bowel syndrome, unspecified; J44.9 Chronic obstructive pulmonary disease, unspecified; Z95.5 Presence of coronary angioplasty implant and graft; Z87.891 Personal history of nicotine dependence; Z90.710 Acquired absence of both cervix and uterus; Z90.49 Acquired absence of other specified parts of digestive tract; Z79.82 Long term (current) use of aspirin; Z88.5 Allergy status to narcotic agent; Z88.2 Allergy status to sulfonamides; Z88.8 Allergy status to other drugs, medicaments and biological substances; Y83.8 Other surgical procedures as the cause of abnormal reaction of the patient, or of later complication, without mention of misadventure at the time of the procedure | CPT/HCPCS: 97597 ==

== ENCOUNTER → 2021-02-22 | Outpatient (CLI) | payer MEDICARE | END | disposition home or self-care (01) | LOC: WOUND 08:27 | PROVIDERS: ATTEND Internal Medicine | DX: T81.32XD Disruption of internal operation (surgical) wound, not elsewhere classified, subsequent encounter (principal); T81.49XD Infection following a procedure, other surgical site, subsequent encounter; A49.01 Methicillin susceptible Staphylococcus aureus infection, unspecified site; K21.9 Gastro-esophageal reflux disease without esophagitis; F32.9 Major depressive disorder, single episode, unspecified; I48.0 Paroxysmal atrial fibrillation; I25.10 Atherosclerotic heart disease of native coronary artery without angina pectoris; E03.9 Hypothyroidism, unspecified; G47.00 Insomnia, unspecified; F12.10 Cannabis abuse, uncomplicated; I48.20 Chronic atrial fibrillation, unspecified; G89.4 Chronic pain syndrome; E78.5 Hyperlipidemia, unspecified; I11.0 Hypertensive heart disease with heart failure; I50.32 Chronic diastolic (congestive) heart failure; K58.9 Irritable bowel syndrome, unspecified; J44.9 Chronic obstructive pulmonary disease, unspecified; Z95.5 Presence of coronary angioplasty implant and graft; Z87.891 Personal history of nicotine dependence; Z90.710 Acquired absence of both cervix and uterus; Z90.49 Acquired absence of other specified parts of digestive tract; Z79.82 Long term (current) use of aspirin; Z88.5 Allergy status to narcotic agent; Z88.2 Allergy status to sulfonamides; Z88.8 Allergy status to other drugs, medicaments and biological substances; Y83.8 Other surgical procedures as the cause of abnormal reaction of the patient, or of later complication, without mention of misadventure at the time of the procedure | CPT/HCPCS: 97597 ==

== ENCOUNTER → 2021-03-01 | Outpatient (CLI) | payer MEDICARE | END | disposition home or self-care (01) | LOC: WOUND 08:30 | PROVIDERS: ATTEND Nurse Practitioner Family | DX: T81.32XD Disruption of internal operation (surgical) wound, not elsewhere classified, subsequent encounter (principal); T81.49XD Infection following a procedure, other surgical site, subsequent encounter; A49.01 Methicillin susceptible Staphylococcus aureus infection, unspecified site; K21.9 Gastro-esophageal reflux disease without esophagitis; F32.9 Major depressive disorder, single episode, unspecified; I48.0 Paroxysmal atrial fibrillation; I25.10 Atherosclerotic heart disease of native coronary artery without angina pectoris; E03.9 Hypothyroidism, unspecified; G47.00 Insomnia, unspecified; F12.10 Cannabis abuse, uncomplicated; I48.20 Chronic atrial fibrillation, unspecified; G89.4 Chronic pain syndrome; E78.5 Hyperlipidemia, unspecified; I11.0 Hypertensive heart disease with heart failure; I50.32 Chronic diastolic (congestive) heart failure; K58.9 Irritable bowel syndrome, unspecified; J44.9 Chronic obstructive pulmonary disease, unspecified; Z95.5 Presence of coronary angioplasty implant and graft; Z87.891 Personal history of nicotine dependence; Z90.710 Acquired absence of both cervix and uterus; Z90.49 Acquired absence of other specified parts of digestive tract; Z79.82 Long term (current) use of aspirin; Z88.5 Allergy status to narcotic agent; Z88.2 Allergy status to sulfonamides; Z88.8 Allergy status to other drugs, medicaments and biological substances; Y83.8 Other surgical procedures as the cause of abnormal reaction of the patient, or of later complication, without mention of misadventure at the time of the procedure | CPT/HCPCS: 97597 ==

== ENCOUNTER 2021-03-08 09:04 | Outpatient (CLI) | payer MEDICARE | END 2021-03-08 23:59 | disposition home or self-care (01) | LOC: WOUND 09:04 | PROVIDERS: ATTEND Nurse Practitioner Family | DX: T81.32XD Disruption of internal operation (surgical) wound, not elsewhere classified, subsequent encounter (principal); T81.49XD Infection following a procedure, other surgical site, subsequent encounter; A49.01 Methicillin susceptible Staphylococcus aureus infection, unspecified site; K21.9 Gastro-esophageal reflux disease without esophagitis; F32.9 Major depressive disorder, single episode, unspecified; I48.0 Paroxysmal atrial fibrillation; I25.10 Atherosclerotic heart disease of native coronary artery without angina pectoris; E03.9 Hypothyroidism, unspecified; G47.00 Insomnia, unspecified; F12.10 Cannabis abuse, uncomplicated; I48.20 Chronic atrial fibrillation, unspecified; G89.4 Chronic pain syndrome; E78.5 Hyperlipidemia, unspecified; I11.0 Hypertensive heart disease with heart failure; I50.32 Chronic diastolic (congestive) heart failure; K58.9 Irritable bowel syndrome, unspecified; J44.9 Chronic obstructive pulmonary disease, unspecified; Z95.5 Presence of coronary angioplasty implant and graft; Z87.891 Personal history of nicotine dependence; Z90.710 Acquired absence of both cervix and uterus; Z90.49 Acquired absence of other specified parts of digestive tract; Z79.82 Long term (current) use of aspirin; Z88.5 Allergy status to narcotic agent; Z88.2 Allergy status to sulfonamides; Z88.8 Allergy status to other drugs, medicaments and biological substances; Y83.8 Other surgical procedures as the cause of abnormal reaction of the patient, or of later complication, without mention of misadventure at the time of the procedure | CPT/HCPCS: 97597 ==

== ENCOUNTER 2021-03-15 10:04 | Outpatient (CLI) | payer MEDICARE | END 2021-03-15 23:59 | disposition home or self-care (01) | LOC: WOUND 10:04 | PROVIDERS: ATTEND Nurse Practitioner Family | DX: T81.32XD Disruption of internal operation (surgical) wound, not elsewhere classified, subsequent encounter (principal); C43.72 Malignant melanoma of left lower limb, including hip; B95.61 Methicillin susceptible Staphylococcus aureus infection as the cause of diseases classified elsewhere; I48.0 Paroxysmal atrial fibrillation; I25.10 Atherosclerotic heart disease of native coronary artery without angina pectoris; G25.81 Restless legs syndrome; E03.9 Hypothyroidism, unspecified; J44.9 Chronic obstructive pulmonary disease, unspecified; G89.4 Chronic pain syndrome; K21.9 Gastro-esophageal reflux disease without esophagitis; E78.5 Hyperlipidemia, unspecified; I11.0 Hypertensive heart disease with heart failure; I50.32 Chronic diastolic (congestive) heart failure; K58.9 Irritable bowel syndrome, unspecified; G47.00 Insomnia, unspecified; F32.9 Major depressive disorder, single episode, unspecified; F98.8 Other specified behavioral and emotional disorders with onset usually occurring in childhood and adolescence; F12.10 Cannabis abuse, uncomplicated; Z87.891 Personal history of nicotine dependence; Z79.899 Other long term (current) drug therapy; Z90.710 Acquired absence of both cervix and uterus; Z90.49 Acquired absence of other specified parts of digestive tract; Z95.1 Presence of aortocoronary bypass graft; Y83.8 Other surgical procedures as the cause of abnormal reaction of the patient, or of later complication, without mention of misadventure at the time of the procedure | CPT/HCPCS: 97597 ==

== ENCOUNTER 2021-03-22 09:06 | Outpatient (CLI) | payer MEDICARE | END 2021-03-22 23:59 | disposition home or self-care (01) | LOC: WOUND 09:06 | PROVIDERS: ATTEND Nurse Practitioner Family | DX: T81.32XD Disruption of internal operation (surgical) wound, not elsewhere classified, subsequent encounter (principal); C43.72 Malignant melanoma of left lower limb, including hip; B95.61 Methicillin susceptible Staphylococcus aureus infection as the cause of diseases classified elsewhere; I48.0 Paroxysmal atrial fibrillation; I25.10 Atherosclerotic heart disease of native coronary artery without angina pectoris; G25.81 Restless legs syndrome; E03.9 Hypothyroidism, unspecified; J44.9 Chronic obstructive pulmonary disease, unspecified; G89.4 Chronic pain syndrome; K21.9 Gastro-esophageal reflux disease without esophagitis; E78.5 Hyperlipidemia, unspecified; I11.0 Hypertensive heart disease with heart failure; I50.32 Chronic diastolic (congestive) heart failure; K58.9 Irritable bowel syndrome, unspecified; G47.00 Insomnia, unspecified; F32.9 Major depressive disorder, single episode, unspecified; F98.8 Other specified behavioral and emotional disorders with onset usually occurring in childhood and adolescence; F12.10 Cannabis abuse, uncomplicated; I48.20 Chronic atrial fibrillation, unspecified; Z87.891 Personal history of nicotine dependence; Z79.899 Other long term (current) drug therapy; Z90.710 Acquired absence of both cervix and uterus; Z90.49 Acquired absence of other specified parts of digestive tract; Z95.1 Presence of aortocoronary bypass graft; Z88.5 Allergy status to narcotic agent; Z88.2 Allergy status to sulfonamides; Z88.8 Allergy status to other drugs, medicaments and biological substances; Z79.82 Long term (current) use of aspirin; Y83.8 Other surgical procedures as the cause of abnormal reaction of the patient, or of later complication, without mention of misadventure at the time of the procedure | CPT/HCPCS: 97597 ==

== ENCOUNTER → 2021-03-29 | Outpatient (CLI) | payer MEDICARE | END | disposition home or self-care (01) | LOC: WOUND 09:33 | PROVIDERS: ATTEND Nurse Practitioner Family | DX: T81.32XD Disruption of internal operation (surgical) wound, not elsewhere classified, subsequent encounter (principal); C43.72 Malignant melanoma of left lower limb, including hip; B95.61 Methicillin susceptible Staphylococcus aureus infection as the cause of diseases classified elsewhere; I48.0 Paroxysmal atrial fibrillation; I25.10 Atherosclerotic heart disease of native coronary artery without angina pectoris; G25.81 Restless legs syndrome; E03.9 Hypothyroidism, unspecified; J44.9 Chronic obstructive pulmonary disease, unspecified; G89.4 Chronic pain syndrome; K21.9 Gastro-esophageal reflux disease without esophagitis; E78.5 Hyperlipidemia, unspecified; I11.0 Hypertensive heart disease with heart failure; I50.32 Chronic diastolic (congestive) heart failure; K58.9 Irritable bowel syndrome, unspecified; G47.00 Insomnia, unspecified; F32.9 Major depressive disorder, single episode, unspecified; F98.8 Other specified behavioral and emotional disorders with onset usually occurring in childhood and adolescence; F12.10 Cannabis abuse, uncomplicated; I48.20 Chronic atrial fibrillation, unspecified; Z87.891 Personal history of nicotine dependence; Z79.899 Other long term (current) drug therapy; Z90.710 Acquired absence of both cervix and uterus; Z90.49 Acquired absence of other specified parts of digestive tract; Z95.1 Presence of aortocoronary bypass graft; Z88.5 Allergy status to narcotic agent; Z88.2 Allergy status to sulfonamides; Z88.8 Allergy status to other drugs, medicaments and biological substances; Z79.82 Long term (current) use of aspirin; Y83.8 Other surgical procedures as the cause of abnormal reaction of the patient, or of later complication, without mention of misadventure at the time of the procedure | CPT/HCPCS: G0463 ==